=== PATIENT | male | born 1960 | race Caucasian/White ===

== ENCOUNTER 2016-12-17 16:07 | Inpatient (IN) | payer BC ==
[~2016-12-17] VITALS: Ht 180.3 cm; Wt 77.9 kg
[2016-12-17] MEDS ORDERED: SODIUM CHLORIDE 0.9% 1000ML 1,000 ML IV STA ×2 (16:45)
[2016-12-17] MEDS ORDERED: ONDANSETRON 8 MG/54 ML D5W IV STA (16:45)
[2016-12-17] MEDS ORDERED: MoRPHine SULFATE 4 MG/ML 1 ML CARP\\VIAL IV PRN ×2 (16:45→18:45)
[2016-12-17 17:17] LABS: BASO % 0.6 %; BASO ABS # 0.06 K/uL (0-0.2); COMPLETE YES; EOS % 0.5 %; HEMATOCRIT 46.6 % (42-52); IG% 0.3 %; LYMPH % 11.7 %; LYMPH ABS # 1.15 K/uL (1.2-3.4); MEAN CORPUSCULAR HEMOGLOBIN 27.4 pg (25-34); MEAN CORPUSCULAR HGB CONC 32.6 g/dl (32-36); MONO % 8.1 %; NEUT % 78.8 %; PLATELET COUNT 341 K/uL (130-400); RED BLOOD COUNT 5.55 M/uL (4.7-6.1); WHITE BLOOD COUNT 9.79 K/uL (4.8-10.8)
[2016-12-17 17:36] LABS: BUN/CREATININE RATIO 12.8 (10-20); CALCIUM 8.9 mg/dl (8.5-10.1); CREATININE 1.3 mg/dl (0.60-1.40); POTASSIUM 3.9 mmol/L (3.5-5.1)
--- NOTE | 2016-12-17 17:41 | DIAGNOSTIC IMAGING REPORT ---
ABDOMEN AND PELVIS CT WITHOUT CONTRAST CT DOSE: 344.95 mGy.cm HISTORY: acute abdominal pain, upper, N/V TECHNIQUE: Multiaxial CT images of the abdomen and pelvis were performed without contrast. COMPARISON STUDY: None. FINDINGS: There is an umbilical hernia containing a short segment of distended small bowel. Distal to the hernia the small bowel is decompressed. Proximally, the small bowel is distended and fluid-filled measuring up to 3.4 cm. Therefore, this is consistent with a small bowel obstruction. Moderate hiatus hernia. Patchy densities and tree-in-bud nodular opacities within the bilateral lower lobes. This is consistent with an infectious bronchiolitis/pneumonia. No pneumoperitoneum. No pneumatosis. The unenhanced liver, gallbladder, spleen, adrenal glands, and pancreas are unremarkable. No renal stones or hydronephrosis. No retroperitoneal lymphadenopathy. The bladder is mildly distended. There is a small left posterior bladder diverticulum. The prostate gland is enlarged. Trace pelvic free fluid. Colonic diverticulosis. Normal appendix. IMPRESSION: 1. Small bowel obstruction with the transition point located at the umbilical hernia. 2. Bilateral lower lobe infectious bronchiolitis/pneumonia. This could be due to aspiration. 3. Moderate hiatus hernia. 4. Colonic diverticulosis. 5. Trace pelvic free fluid. Electronically signed by: David Telles M.D. 12/17/2016 5:40 PM Dictated Date/Time: 12/17/2016 5:35 PM
[2016-12-17] MEDS ORDERED: PIPERACILLIN/TAZOBACTAM 4.5 GM/100ML D5W IV STA (17:47)
[2016-12-17] MEDS ORDERED: LEVAQUIN 750MG / 150ML D5W IV STA (17:47)
[2016-12-17] MEDS ORDERED: PANT40TA PO (17:53)
[2016-12-17] MEDS ORDERED: ADVIN10050 (17:53)
[2016-12-17] MEDS ORDERED: EFF/375 PO (17:53)
[2016-12-17] MEDS ORDERED: BUSP15TA70 PO (17:53)
[2016-12-17] MEDS ORDERED: TAMS0.4C38 PO (17:53)
[2016-12-17] MEDS ORDERED: CALC1CHW46 (17:53)
[2016-12-17] MEDS ORDERED: ARIP2TAB3 PO (17:53)
[2016-12-17] MEDS ORDERED: BUPIVACAINE/EPINEPHRINE 0.5% MPF 1:200,000 30 ML VIAL ONE (18:04)
[2016-12-17] MEDS ORDERED: MEPERIDINE HCL 25 MG/ML CARP IV PRN (18:15)
[2016-12-17] MEDS ORDERED: MoRPHine SULFATE 10 MG/ML CARP/VIAL IV PRN (18:15)
[2016-12-17] MEDS ORDERED: EpHEDrine SULFATE INJ 50 MG/ML AMP IV PRN (18:15)
[2016-12-17] MEDS ORDERED: ATROPINE SULFATE 0.1 MG/ML 5ML SYR IV PRN (18:15)
[2016-12-17] MEDS ORDERED: PHENYLEPHRINE 100MCG/ML 5ML SYR IV PRN (18:15)
[2016-12-17] MEDS ORDERED: FLUMAZENIL 0.1 MG/1 ML 10 ML VIAL IV PRN (18:15)
[2016-12-17] MEDS ORDERED: LABETALOL HCL IV 5 MG/ML 20ML IV PRN (18:15)
[2016-12-17] MEDS ORDERED: ONDANSETRON INJ 2 MG/ML 2 ML VIAL IV PRN ×2 (18:15→18:30)
[2016-12-17] MEDS ORDERED: NALOXONE HCL 0.4 MG/1 ML VIAL/CARP IV PRN (18:15)
--- NOTE | 2016-12-17 18:16 | History and Physical ---
History & Physical Date December 17, 2016. History of Present Illness The patient is a 56 year old male with an incarcerated umbilical hernia causing a SBO and possible aspiration pneumonia. He presents with abdominal pain since yesterday and subsequently started vomiting. He notes that there is a hard area around his umbilicus. His nausea & vomiting has been persistent since yesterday. The patient has not had any surgeries of the abdomen. His last bowel movement was two days ago which was normal. The patient has a history of asthma, acid reflux, and prostate disease. He denies LOC, headache, fevers, chills, diaphoresis, visual changes, neck pain, chest pain, breathing difficulties, back pain, melena, hematochezia, urinary symptoms, numbness, weakness, lymphadenopathy, rash, or other complaints. A CT scan shows SB in his umbilical hernia causing a SBO. Past Medical/Surgical History Medical Problems: (1) Asthma (2) GERD (gastroesophageal reflux disease) Surgical Problems: S/P hernia repair L arm fracture Additional History Hepatic Disease: No Endocrine Disorder: No Kidney Disease: No Hypertension: No Heart Disease: No Bleeding Tendencies: No Infectious Diseases: No Other: GERD asthma anxiety depression Allergies Uncoded Allergies: NASAL SPRAY (Allergy, Unknown, NOSE BLEEDS, 12/17/16) CAT DANDER, DUST, POLLEN (Allergy, Unknown, ., 12/17/16) Home Medications Scheduled Aripiprazole (Abilify), 1 TAB PO DAILY Buspirone Hcl (Buspar), 1 TAB PO BID Pantoprazole (Protonix), 40 MG PO DAILY Tamsulosin Hcl (Flomax), 1 CAP PO DAILY Venlafaxine Hcl (Effexor), 1 TAB PO BID Miscellaneous Medications Calcium Carbonate-Mag Hydrox (Antacid) Fluticasone Prop/Salmeterol (Advair Diskus 100-50 Mcg/Dose) Physical Examination Skin: warm/dry, no rash Eyes: normal inspection, EOMI, sclerae normal ENT: normal ENT inspection, pharynx normal Head: normocephalic, atraumatic Neck: supple, no adenopathy, trachea midline Respiratory/Chest: lungs clear, normal breath sounds, no respiratory distress Cardiovascular: regular rate, rhythm, no edema, no murmur Abdomen / GI: normal bowel sounds, + pertinent finding (incarcerated umbilical hernia; tender and some erythema) Back: normal inspection Extremities: normal inspection Genitourinary - Male: normal male genitalia Neurologic/Psych: no motor/sensory deficits, alert, oriented x 3 Addiitonal Comments: ABDOMEN AND PELVIS CT WITHOUT CONTRAST CT DOSE: 344.95 mGy.cm HISTORY: acute abdominal pain, upper, N/V TECHNIQUE: Multiaxial CT images of the abdomen and pelvis were performed without contrast. COMPARISON STUDY: None. FINDINGS: There is an umbilical hernia containing a short segment of distended small bowel. Distal to the hernia the small bowel is decompressed. Proximally, the small bowel is distended and fluid-filled measuring up to 3.4 cm. Therefore, this is consistent with a small bowel obstruction. Moderate hiatus hernia. Patchy densities and tree-in-bud nodular opacities within the bilateral lower lobes. This is consistent with an infectious bronchiolitis/pneumonia. No pneumoperitoneum. No pneumatosis. The unenhanced liver, gallbladder, spleen, adrenal glands, and pancreas are unremarkable. No renal stones or hydronephrosis. No retroperitoneal lymphadenopathy. The bladder is mildly distended. There is a small left posterior bladder diverticulum. The prostate gland is enlarged. Trace pelvic free fluid. Colonic diverticulosis. Normal appendix. IMPRESSION: 1. Small bowel obstruction with the transition point located at the umbilical hernia. 2. Bilateral lower lobe infectious bronchiolitis/pneumonia. This could be due to aspiration. 3. Moderate hiatus hernia. 4. Colonic diverticulosis. 5. Trace pelvic free fluid. Diagnosis incarcerated umbilical hernia/SBO ASA Classification: ASA Class II Plan of Treatment -to OR for exploration and repair of hernia; possible SB resection -IVF -IV abx -questionable aspiration; may need medical consult post-op -ngt post-op
[2016-12-17] MEDS ORDERED: FENTANYL CITRATE INJ 50 MCG/1 ML 2 ML VIAL ONE ×2 (18:29→19:16)
[2016-12-17] MEDS ORDERED: BISACODYL 10 MG SUPP PR PRN (18:30)
[2016-12-17] MEDS ORDERED: MoRPHine SULFATE 2 MG/ML CARP IV PRN (18:30)
[2016-12-17] MEDS ORDERED: ACETAMINOPHEN 650 MG SUPP PR PRN (18:30)
[2016-12-17] MEDS ORDERED: OXYCODONE/ACETAMINOPHEN 5-325 TAB PO PRN (18:30)
[2016-12-17] MEDS ORDERED: PROMETHAZINE HCL INJ 12.5 MG in SODIUM CHLORIDE 0.9% 50ML 50 ML IV PRN (18:30)
[2016-12-17] MEDS ORDERED: LIDOCAINE HCL 2% 2 ML VIAL (20MG/ML) ONE (18:32)
[2016-12-17] MEDS ORDERED: ROCURONIUM BROMID 50MG/5ML SYR ONE (18:32)
[2016-12-17] MEDS ORDERED: SUCCINYLCHOLINE 100MG/5ML SYR IV ONE (18:32)
[2016-12-17] MEDS ORDERED: PROPOFOL IV EMULSION 10 MG/ML 20 ML VIAL IV ONE (18:32)
[2016-12-17 18:40] LABS: URINE APPEARANCE CLOUDY (CLEAR); URINE BILIRUBIN NEG (NEG); URINE COLOR DK YELLOW; URINE EPITHELIAL CELL AUTO >30 /lpf (0-5); URINE NITRITE NEG (NEG); URINE PH 8.5 (4.5-7.5); URINE SPECIFIC GRAVITY 1.023 (1.000-1.030); UROBILINOGEN NEG (NEG); ZZUR CULT IF INDIC CLEAN CATCH NO
[2016-12-17 18:41] LABS: MANUAL MICROSCOPIC REQUIRED? NO; REVIEW REQ? YES
[2016-12-17 18:43] LABS: SULFASALICYLIC ACID POS (NEG)
[2016-12-17] MEDS ORDERED: DEXAMETHASONE SOD INJ 4 MG/ML VIAL ONE (19:16)
[2016-12-17] MEDS ORDERED: GLYCOPYRROLATE INJ 0.2 MG/ML VIAL ONE ×2 (19:16→19:39)
[2016-12-17] MEDS ORDERED: NEOSTIGMINE METHYLSULFATE 5 MG/5 ML SYR ONE (19:16)
[2016-12-17] MEDS ORDERED: ONDANSETRON INJ 2 MG/ML 2 ML VIAL ONE (19:16)
--- NOTE | 2016-12-17 20:04 | [facility] Post Operative Brief Note ---
Immediate Operative Summary Operative Date December 17, 2016. Pre-Operative Diagnosis Incarcerated Umbilical Hernia; Small Bowel Obstruction Post-Operative Diagnosis Same as preop Procedure(s) Performed Incarcerated Umbilical Hernia Repair; Small Bowel Resection Surgeon Dr. Taylor Verification Engineer Surgeon(s) None Estimated Blood Loss 35 ml Findings SB loop gangrenous in sac Specimens A. Portion of Small Bowel Drains none Anesthesia GETA w/marcaine Complication(s) None Disposition Surgical ICU
[2016-12-17] MEDS ORDERED: HYDROmorphone INJ 2 MG/ML SYR/VIAL ONE (20:24)
[2016-12-17] MEDS: HYDROmorphone INJ 1 MG/ML SYR IV PRN ×2 (20:25→20:30)
--- NOTE | 2016-12-17 20:55 | Anesthesiology Progress Note ---
Anesthesia Post Op Note Date & Time December 17, 2016 at 20:45 Vital Signs Pain Intensity: 3 Vital Signs Past 12 Hours Date Time Temp Pulse Resp B/P Pulse Ox O2 Delivery O2 Flow Rate FiO2 12/17/16 20:35 87 16 134/83 97 Nasal Cannula 3 12/17/16 20:25 83 16 137/81 100 Mask 10 12/17/16 20:15 85 16 123/76 98 Mask 10 12/17/16 20:05 37 85 16 137/79 96 Mask 10 12/17/16 18:23 138/87 12/17/16 18:18 89 18 95 12/17/16 16:21 36.8 105 22 140/72 96 Room Air Notes Mental Status: alert / awake / arousable, participated in evaluation Pt Amnestic to Procedure: Yes Nausea / Vomiting: adequately controlled Pain: adequately controlled Airway Patency, RR, SpO2: stable & adequate BP & HR: stable & adequate Hydration State: stable & adequate Anesthetic Complications: no major complications apparent The patient did well. He is awake, comfortable, and all of his vitals are stable. He was noted to have possible aspiration on Chest CT prior to the procedure. He was intubated by rapid sequence without any problem. An NG tube was placed once he was asleep. The patient had 400 ml of gastric fluid put out through the NG with most of it just prior to extubation. He was extubated without incident and has been stable in the PACU. I spoke to the patient preoperatively and postoperatively about the risk of aspiration pneumonia. I also let Dr. Taylor know about the large amount of gastric fluid suctioned out during the procedure.
[2016-12-17 21:04] VITALS: BP 137/82; PULSE 94; TEMP 36.8; O2SAT 96
[2016-12-17 21:12] VITALS: BP 137/82; PULSE 94; TEMP 36.8; Ht 180.3 cm; Wt 77.9 kg
[2016-12-17 21:36] VITALS: BP 127/78; PULSE 100; TEMP 37.1; O2SAT 96
[2016-12-17 22:00] VITALS: BP 134/83; PULSE 95; TEMP 36.9; O2SAT 95
[2016-12-17] MEDS ORDERED: PIPERACILL/TAZOBAC CONSULT ACTIVE PRN (22:00)
[2016-12-17] MEDS: LACTATED RINGER'S 1000ML 1,000 ML IV SCH (22:09)
--- NOTE | 2016-12-17 22:56 | EMERGENCY ROOM VISIT NOTE ---
History Report prepared by Crys: Emmanuel Perez Under the Supervision of: Dr. Usman Patterson M.D. First contact with patient: 16:40 Chief Complaint: ABDOMINAL PAIN Stated Complaint: VOMITING AND STOMACH PAIN FOR MORE THAN 24 HOURS Nursing Triage Summary: pt c/o nausea and vomiting since yesterday. pt also c/o constipation. last BM was sunday History of Present Illness The patient is a 56 year old male who presents to the Emergency Room with complaints of improved abdominal pain since yesterday. The patient had upper abdominal pain with bloating in the morning yesterday. He then started vomiting. The patient's pain has improved, and is currently rated 1/10 in severity. The pain becomes 5/10 when he pushes on the abdomen. He notes that there is a hard area around his umbilicus. The patient has had persistent nausea & vomiting since yesterday. He has never felt like this before. The patient has not had any surgeries of the abdomen. His last bowel movement was two days ago which was normal. The patient has a history of asthma, acid reflux , and prostate disease. He follows up with the [facility]. The patient experiences indigestion when he takes NSAIDS. The patient denies recent travel. Patient denies LOC, headache, fevers, chills, diaphoresis, visual changes, neck pain, chest pain, breathing difficulties, back pain, melena, hematochezia, urinary symptoms, numbness, weakness, lymphadenopathy, rash, or other complaints. Source of History: patient Onset: yesterday Position: abdomen Symptom Intensity: 1/10 Timing: other (improved) Modifying Factors (Worsening): other (pushing on abdomen) Associated Symptoms: + nausea, + vomiting Review of Systems See HPI for pertinent positives and negatives. A total of ten systems were reviewed and were otherwise negative. Past Medical & Surgical Medical Problems: (1) Asthma (2) GERD (gastroesophageal reflux disease) (3) Incarcerated hernia Surgical Problems: (1) S/P hernia repair Family History Cancer Heart disease Hypertension Social History Smoking Status: Never Smoker Alcohol Use: occasionally Housing Status: lives alone Occupation Status: unemployed Current/Historical Medications Scheduled Aripiprazole (Abilify), 1 TAB PO DAILY Buspirone Hcl (Buspar), 1 TAB PO BID Pantoprazole (Protonix), 40 MG PO DAILY Tamsulosin Hcl (Flomax), 1 CAP PO DAILY Venlafaxine Hcl (Effexor), 1 TAB PO BID Miscellaneous Medications Calcium Carbonate-Mag Hydrox (Antacid) Fluticasone Prop/Salmeterol (Advair Diskus 100-50 Mcg/Dose) Allergies Coded Allergies: Cat Dander (Verified Allergy, Unknown, SNEEZING, 12/17/16) Dust (Verified Allergy, Unknown, SNEEZING, 12/17/16) POLLEN (Verified Allergy, Unknown, SNEEZING, 12/17/16) Physical Exam Vital Signs Date Time Temp Pulse Resp B/P Pulse Ox O2 Delivery O2 Flow Rate FiO2 12/17/16 18:18 89 18 95 12/17/16 16:21 36.8 105 22 140/72 96 Room Air Physical Exam GENERAL: Awake, alert, uncomfortable-appearing, in no distress HENT: Normocephalic, atraumatic. Oropharynx unremarkable. EYES: Normal conjunctiva. Sclera non-icteric. NECK: Supple. No nuchal rigidity. FROM. No JVD. RESPIRATORY: Clear to auscultation. CARDIAC: Regular rate, normal rhythm. Extremities warm and well perfused. Pulses equal. ABDOMEN: Erythema and moderate tenderness around the umbilicus with a non- reducible hernia present. There is also generalized abdominal tenderness. No rebound or guarding. RECTAL: Deferred. MUSCULOSKELETAL: Chest examination reveals no tenderness. The back is symmetrical on inspection without obvious abnormality. There is no CVA tenderness to palpation. No joint edema. LOWER EXTREMITIES: Calves are equal size bilaterally and non-tender. No edema. No discoloration. NEURO: Normal sensorium. No sensory or motor deficits noted. SKIN: No rash or jaundice noted. Medical Decision & Procedures ER Provider Diagnostic Interpretation: Radiology results as stated below per my review and radiologist interpretation: ABDOMEN AND PELVIS CT WITHOUT CONTRAST CT DOSE: 344.95 mGy.cm HISTORY: acute abdominal pain, upper, N/V TECHNIQUE: Multiaxial CT images of the abdomen and pelvis were performed without contrast. COMPARISON STUDY: None. FINDINGS: There is an umbilical hernia containing a short segment of distended small bowel. Distal to the hernia the small bowel is decompressed. Proximally, the small bowel is distended and fluid-filled measuring up to 3.4 cm. Therefore, this is consistent with a small bowel obstruction. Moderate hiatus hernia. Patchy densities and tree-in-bud nodular opacities within the bilateral lower lobes. This is consistent with an infectious bronchiolitis/pneumonia. No pneumoperitoneum. No pneumatosis. The unenhanced liver, gallbladder, spleen, adrenal glands, and pancreas are unremarkable. No renal stones or hydronephrosis. No retroperitoneal lymphadenopathy. The bladder is mildly distended. There is a small left posterior bladder diverticulum. The prostate gland is enlarged. Trace pelvic free fluid. Colonic diverticulosis. Normal appendix. IMPRESSION: 1. Small bowel obstruction with the transition point located at the umbilical hernia. 2. Bilateral lower lobe infectious bronchiolitis/pneumonia. This could be due to aspiration. 3. Moderate hiatus hernia. 4. Colonic diverticulosis. 5. Trace pelvic free fluid. Electronically signed by: David Telles M.D. 12/17/2016 5:40 PM Dictated Date/Time: 12/17/2016 5:35 PM Laboratory Results 12/17/16 17:07 Red Blood Count 5.55, Mean Corpuscular Volume 84.0, Mean Corpuscular Hemoglobin 27.4, Mean Corpuscular Hemoglobin Concent 32.6, Mean Platelet Volume 9.0, Neutrophils (%) (Auto) 78.8, Lymphocytes (%) (Auto) 11.7, Monocytes (%) (Auto) 8.1, Eosinophils (%) (Auto) 0.5, Basophils (%) (Auto) 0.6, Neutrophils # (Auto) 7.71, Lymphocytes # (Auto) 1.15, Monocytes # (Auto) 0.79, Eosinophils # (Auto) 0.05, Basophils # (Auto) 0.06 12/17/16 17:07 Test 12/17/16 17:07 12/17/16 18:15 White Blood Count 9.79 K/uL (4.8-10.8) Red Blood Count 5.55 M/uL (4.7-6.1) Hemoglobin 15.2 g/dL (14.0-18.0) Hematocrit 46.6 % (42-52) Mean Corpuscular Volume 84.0 fL (80-100) Mean Corpuscular Hemoglobin 27.4 pg (25-34) Mean Corpuscular Hemoglobin Concent 32.6 g/dl (32-36) Platelet Count 341 K/uL (130-400) Mean Platelet Volume 9.0 fL (7.4-10.4) Neutrophils (%) (Auto) 78.8 % Lymphocytes (%) (Auto) 11.7 % Monocytes (%) (Auto) 8.1 % Eosinophils (%) (Auto) 0.5 % Basophils (%) (Auto) 0.6 % Neutrophils # (Auto) 7.71 K/uL (1.4-6.5) Lymphocytes # (Auto) 1.15 K/uL (1.2-3.4) Monocytes # (Auto) 0.79 K/uL (0.11-0.59) Eosinophils # (Auto) 0.05 K/uL (0-0.5) Basophils # (Auto) 0.06 K/uL (0-0.2) RDW Standard Deviation 52.9 fL (36.4-46.3) RDW Coefficient of Variation 17.2 % (11.5-14.5) Immature Granulocyte % (Auto) 0.3 % Immature Granulocyte # (Auto) 0.03 K/uL (0.00-0.02) Anion Gap 10.0 mmol/L (3-11) Est Creatinine Clear Calc Drug Dose 66.7 ml/min Estimated GFR () 70.2 Estimated GFR (Non- 60.6 BUN/Creatinine Ratio 12.8 (10-20) Calcium Level 8.9 mg/dl (8.5-10.1) Total Bilirubin 0.5 mg/dl (0.2-1) Direct Bilirubin 0.1 mg/dl (0-0.2) Aspartate Amino Transf (AST/SGOT) 14 U/L (15-37) Alanine Aminotransferase (ALT/SGPT) 27 U/L (12-78) Alkaline Phosphatase 90 U/L (45-117) Total Protein 7.9 gm/dl (6.4-8.2) Albumin 3.4 gm/dl (3.4-5.0) Lipase 90 U/L (73-393) Urine Color DK YELLOW Urine Appearance CLOUDY (CLEAR) Urine pH 8.5 (4.5-7.5) Urine Specific [place] 1.023 (1.000-1.030) Urine Protein 1+ (NEG) Urine Glucose (UA) NEG (NEG) Urine Ketones 2+ (NEG) Urine Occult Blood NEG (NEG) Urine Nitrite NEG (NEG) Urine Bilirubin NEG (NEG) Urine Urobilinogen NEG (NEG) Urine Leukocyte Esterase NEG (NEG) Urine WBC (Auto) 1-5 /hpf (0-5) Urine RBC (Auto) 0-4 /hpf (0-4) Urine Hyaline Casts (Auto) 10-30 /lpf (0-5) Urine Epithelial Cells (Auto) >30 /lpf (0-5) Urine Bacteria (Auto) NEG (NEG) Urine Renal Epithelial Cells 0-5 /lpf (0-5) Laboratory results reviewed by me Medications Administered Medications (Trade) Dose Ordered Sig/Zack Route Start Time Stop Time Status Last Admin Dose Admin Sodium Chloride 1,000 ml @ 125 mls/hr Q8H STAT IV 12/17/16 16:45 12/17/16 21:52 DC 12/17/16 18:13 125 MLS/HR Sodium Chloride (Nss 1000ml) 1,000 ml @ 999 mls/hr Q1H1M STAT IV 12/17/16 16:45 12/17/16 17:45 DC 12/17/16 16:45 999 MLS/HR Ondansetron HCl (Zofran 8mg Iv) 8 mg NOW STAT IV 12/17/16 16:45 12/17/16 16:48 DC 12/17/16 17:00 8 MG Morphine Sulfate (MoRPHine SULFATE INJ) 4 mg Q15M PRN IV 12/17/16 16:45 12/17/16 21:52 DC 12/17/16 17:00 4 MG Piperacillin Sod/ Tazobactam Sod (Zosyn Iv) 4.5 gm NOW STAT IV 12/17/16 17:47 12/17/16 17:49 DC 12/17/16 18:13 4.5 GM Bupivacaine HCl/ Epinephrine Bitart (Sensorcaine/ Epinephrine 0.5% Mpf 1:200,000) 30 ml STK-MED ONCE .ROUTE 12/17/16 18:04 12/17/16 18:05 DC 12/17/16 19:56 20 ML Hydromorphone HCl 0.5 mg 0.5 mg Q5M PRN IV 12/17/16 18:15 12/17/16 23:00 12/17/16 20:30 0.5 MG Lactated Ringer's (Lr 1000ml) 1,000 ml @ 150 mls/hr Q6H40M IV 12/17/16 18:16 01/16/17 18:15 12/17/16 22:09 150 MLS/HR ED Course 1645: The patient was evaluated in room A3. A complete history and physical exam was performed. 1645: Morphine Sulfate 4 mg IV, Zofran 8 mg IV, NSS 1000 ml @ 999 mls/hr, NSS 1000 ml @ 125 mls/hr. 1726: Discussed the case with Dr. Taylor, General Surgeon. The patient will be evaluated. 1738: Updated the patient. He notes that he has had a cough lately. CT was positive for pneumonia. 1747: Zosyn 4.5 gm IV, Levofloxacin 750 mg IV. Medical Decision Triage Nursing notes reviewed. The patient's presentation and history were concerning for abdominal pain. Etiologies such as appendicitis, diverticulitis, obstruction, inflammatory bowel disease, renal colic, PUD, biliary pathology, pancreatitis, mesenteric ischemia, aortic pathology, infections, genitourinary, UTI, perforated viscus, as well as others were entertained. The patient was evaluated. On physical examination he had findings concerning for an incarcerated hernia. I suspect that this may be causing obstruction. The patient had blood work obtained. He had an unremarkable CBC and chemistry panel. The patient was hydrated. He was given Zofran and morphine for pain control. He was feeling better with this. CT scan revealed findings of a small bowel obstruction and hernia. The patient also had some findings concerning for pneumonia. He did have vomiting. The patient also notes a cough over the last few days but thought it might be allergies. He was treated with Levaquin and Zosyn. Cultures were obtained first. Consultation was made with Dr. Taylor of general surgery. He evaluated the patient in the Emergency Room and took him to the operating suite for further management. The chart was completed utilizing [employer] Speech voice recognition software. Grammatical errors, random word insertions, pronoun errors, and incomplete sentences are an occasional consequence of this system due to software limitations, ambient noise, and hardware issues. Any formal questions or concerns about the content, text, or information contained within the body of this dictation should be directly addressed to the physician for clarification. Consults Time Called: 1724 Consulting Physician: Dr. Taylor, General Surgeon. Returned Call: 1726 The patient will be evaluated. Impression Primary Impression: Small bowel obstruction Additional Impression: PNA (pneumonia) Scribe Attestation The scribe's documentation has been prepared under my direction and personally reviewed by me in its entirety. I confirm that the note above accurately reflects all work, treatment, procedures, and medical decision making performed by me. Departure Information Dispostion Being Evaluated By Surgeon Referrals Jett Kent M.D. (PCP) Patient Instructions My [facility] Problem Qualifiers
[2016-12-17 22:59] VITALS: BP 120/76; PULSE 97; TEMP 36.8; O2SAT 96
[2016-12-17] MEDS: VENLAFAXINE HCL 37.5 MG TAB PO SCH (23:09)
[2016-12-17] MEDS: BusPIRone 15 MG TAB PO SCH (23:09)
--- NOTE | 2016-12-17 23:33 | OPERATIVE REPORT ---
DATE OF OPERATION: 12/17/2016 PREOPERATIVE DIAGNOSIS: Incarcerated umbilical hernia. POSTOPERATIVE DIAGNOSES: 1. Incarcerated umbilical hernia. 2. Gangrenous small bowel loop within the hernia sac. PROCEDURE PERFORMED: 1. Open umbilical hernia repair. 2. Small bowel resection and anastomosis x1. SURGEON: Lalit Taylor MD RODEO RIDER: None. ANESTHESIA: General endotracheal 0.5% Marcaine with epinephrine local. ESTIMATED BLOOD LOSS: 35 mL. DRAINS: None. COMPLICATIONS: None. SPECIMENS: Small bowel sent for pathologic evaluation. INDICATION FOR PROCEDURE: This is a 56-year-old male, who came in with over a day of abdominal pain, nausea and vomiting. He underwent workup in the ER with CT scan which shows a knuckle of small bowel within umbilical hernia. He denied knowledge of this hernia previously. CT was also suspicious for possible aspiration pneumonia. He consented for an open exploration and possible small bowel resection. We placed an NG tube and had medicine consult for what appears to be likely postop aspiration pneumonia. DESCRIPTION OF PROCEDURE: The patient was taken to the OR and underwent excellent general endotracheal anesthesia. An NG tube was placed and drained his stomach of 400 mL of bilious content. His abdomen was prepped and draped in normal sterile fashion. Transverse infraumbilical incision was made and dissection was taken down to identify his fascia. There was an obvious hernia sac; this was dissected sharply with Gaby scissors until the entire sac was freed. Using handle of a DeBakey forceps the hernia was opened widely using a knife. Once this was done, the sac was entered into and the small bowel was identified. The sac was resected. There appeared to be a gangrenous portion of small bowel. This was freed up and allowed to pink up and warm up in the abdomen. It was grabbed back after about 10 minutes and the small bowel was checked. There was still a focal necrotic area. There were other punctate areas which were also questionable. Therefore, it was elected to do a limited small bowel resection. Using a EVELIN stapler, the proximal and distal ends of the bowel which was not viable was resected. The mesentery was taken down between clamps and silk ties. Once this was done, the two ends of the small bowel were approximated and a EVELIN stapler was used to transect and create a stapled [id number] anastomosis. A suture was placed right at the crotch of the suture line to take pressure. The defect was closed with fire of the EVELIN stapler and that was reinforced with interrupted silk sutures. The defect in the mesentery was also closed with interrupted silk sutures. The bowel itself was good and without any issues. This was placed back into the abdomen. The abdomen was irrigated out with warm saline. Likewise, an NG tube was placed perioperatively to help decompress the stomach and prevent any further aspiration pneumonia. Attention was then turned to closing the hernias. The hernia had to be widened to about 5-6 cm and therefore I selected to close this with a running PDS suture. This was closed in a simple running manner with small 1 cm bites. The entire hernia was closed with a single suture. Once this was done, 0.5% Marcaine with epinephrine local was used to create a local field block. A 3-0 Vicryl was used to close the deep tissues and the subcutaneous. [place] were used to close the skin. Sterile dressing was applied. The patient tolerated the procedure well without any complications, sent to postop recovery area for a period of observation. We will have a hospitalist consult to help take care of the aspiration pneumonia. He will be sent to the floor for the rest of his care. I attest to the content of the Intraoperative Record and any orders documented therein. Any exceptio ns are noted below.
[2016-12-18] VITALS (12 sets, daily range): BP systolic 117–132; BP diastolic 76–83; PULSE 83–98; TEMP 36.5–37; O2SAT 88–96
[2016-12-18] MEDS: PIPERACILL/TAZOBAC IV 3.375 GM in DEXTROSE 5% 100ML 100 ML IV SCH ×3 (00:08→20:06)
[2016-12-18] MEDS: LACTATED RINGER'S 1000ML 1,000 ML IV SCH ×4 (00:20→18:53)
--- NOTE | 2016-12-18 03:35 | History and Physical ---
History & Physical Date & Time of Service: December 18, 2016 at 03:24 Chief Complaint: Incarcerated Hernia Primary Care Physician: Jett Kent M.D. History of Present Illness Source: patient This is a 56 yo m that is s/p SBO repair secondary to an umbilical hernia POD 0. The patient states that he was having abdominal pain since yesterday in the umbilical region and started to suffer from N&V. He also began to notice that there was an area around his umbilical region that was getting harder. The pain was around the umbilicus, 10/10 and sharp in nature. It was exacerbated by movement. He went to the ED for evaluation where he was found to have an incarcerated hernia and repair was done. He was also found to have bilat pneumonia concerning for aspiration on the CT as well. When asked about SOB he states that "now that you mention it over the past two weeks I get short of breath more quickly with activity". He has a chronic dry cough which has been unchanged. He also has a history of asthma and only uses his advair daily and has not had to use his rescue inhaler. Past Medical/Surgical History Medical Problems: (1) Asthma Status: Chronic (2) GERD (gastroesophageal reflux disease) Status: Chronic Surgical Problems: (1) S/P hernia repair Status: Resolved Family History Cancer Heart disease Hypertension Social History Smoking Status: Never Smoker Smokeless Tobacco Use: No Alcohol Use: none Drug Use: none Occupational Status: unemployed Allergies Coded Allergies: Cat Dander (Verified Allergy, Unknown, SNEEZING, 12/17/16) Dust (Verified Allergy, Unknown, SNEEZING, 12/17/16) POLLEN (Verified Allergy, Unknown, SNEEZING, 12/17/16) Home Medications Scheduled Aripiprazole (Abilify), 1 TAB PO DAILY Buspirone Hcl (Buspar), 1 TAB PO BID Pantoprazole (Protonix), 40 MG PO DAILY Tamsulosin Hcl (Flomax), 1 CAP PO DAILY Venlafaxine Hcl (Effexor), 1 TAB PO BID Miscellaneous Medications Calcium Carbonate-Mag Hydrox (Antacid) Fluticasone Prop/Salmeterol (Advair Diskus 100-50 Mcg/Dose) Review of Systems Constitutional: No fever Eyes: No worsening of vision ENT: No hearing loss Respiratory: + cough, + dyspnea on exertion, + shortness of breath, No dyspnea at rest, No sputum, No wheezing Cardiovascular: No chest pain Abdomen: + nausea, + pain, + vomiting, No GI bleeding, No constipation, No diarrhea Musculoskeletal: No joint pain, No muscle pain Genitourinary - Male: No dysuria, No hematuria Neurologic: No balance problems, No numbness/tingling, No weakness Psychiatric: No depression symptoms Endocrine: No fatigue Integumentary: No rash Physical Exam Vital Signs Date Time Temp Pulse Resp B/P Pulse Ox O2 Delivery O2 Flow Rate FiO2 12/18/16 00:12 37.0 96 16 127/83 95 Nasal Cannula 3.0 12/18/16 00:00 Nasal Cannula 2.0 12/17/16 22:59 36.8 97 16 120/76 96 Nasal Cannula 3.0 12/17/16 22:00 36.9 95 16 134/83 95 Nasal Cannula 3.0 12/17/16 21:36 37.1 100 16 127/78 96 Nasal Cannula 3.0 12/17/16 21:12 36.8 94 16 137/82 Nasal Cannula 3.0 96 12/17/16 21:05 Nasal Cannula 3.0 12/17/16 21:04 36.8 94 16 137/82 96 Nasal Cannula 3.0 12/17/16 20:45 37.1 87 16 132/80 98 Nasal Cannula 3 12/17/16 20:35 87 16 134/83 97 Nasal Cannula 3 12/17/16 20:25 83 16 137/81 100 Mask 10 12/17/16 20:15 85 16 123/76 98 Mask 10 12/17/16 20:05 37 85 16 137/79 96 Mask 10 12/17/16 18:23 138/87 12/17/16 18:18 89 18 95 12/17/16 16:21 36.8 105 22 140/72 96 Room Air General Appearance: no apparent distress Head: normocephalic, atraumatic Eyes: normal inspection ENT: normal ENT inspection Neck: supple Respiratory/Chest: lungs clear, no respiratory distress, no accessory muscle use Cardiovascular: regular rate, rhythm, no murmur Abdomen/GI: + pertinent finding (s/p hernia repair, abd exam deferred) Back: normal inspection Extremities/Musculoskelatal: no calf tenderness, no pedal edema Neurologic/Psych: alert, normal mood/affect, oriented x 3 Skin: normal color, warm/dry, no rash Lymphatic: no adenopathy Diagnostics Laboratory Results Results Past 24 Hours Test 12/17/16 17:07 12/17/16 18:15 Range/Units White Blood Count 9.79 4.8-10.8 K/uL Red Blood Count 5.55 4.7-6.1 M/uL Hemoglobin 15.2 14.0-18.0 g/dL Hematocrit 46.6 42-52 % Mean Corpuscular Volume 84.0 80-100 fL Mean Corpuscular Hemoglobin 27.4 25-34 pg Mean Corpuscular Hemoglobin Concent 32.6 32-36 g/dl Platelet Count 341 130-400 K/uL Mean Platelet Volume 9.0 7.4-10.4 fL Neutrophils (%) (Auto) 78.8 % Lymphocytes (%) (Auto) 11.7 % Monocytes (%) (Auto) 8.1 % Eosinophils (%) (Auto) 0.5 % Basophils (%) (Auto) 0.6 % Neutrophils # (Auto) 7.71 1.4-6.5 K/uL Lymphocytes # (Auto) 1.15 1.2-3.4 K/uL Monocytes # (Auto) 0.79 0.11-0.59 K/uL Eosinophils # (Auto) 0.05 0-0.5 K/uL Basophils # (Auto) 0.06 0-0.2 K/uL RDW Standard Deviation 52.9 36.4-46.3 fL RDW Coefficient of Variation 17.2 11.5-14.5 % Immature Granulocyte % (Auto) 0.3 % Immature Granulocyte # (Auto) 0.03 0.00-0.02 K/uL Sodium Level 141 136-145 mmol/L Potassium Level 3.9 3.5-5.1 mmol/L Chloride Level 103 98-107 mmol/L Carbon Dioxide Level 28 21-32 mmol/L Anion Gap 10.0 3-11 mmol/L Blood Urea Nitrogen 17 7-18 mg/dl Creatinine 1.30 0.60-1.40 mg/dl Est Creatinine Clear Calc Drug Dose 66.7 ml/min Estimated GFR () 70.2 Estimated GFR (Non- 60.6 BUN/Creatinine Ratio 12.8 10-20 Random Glucose 127 70-99 mg/dl Calcium Level 8.9 8.5-10.1 mg/dl Total Bilirubin 0.5 0.2-1 mg/dl Direct Bilirubin 0.1 0-0.2 mg/dl Aspartate Amino Transf (AST/SGOT) 14 15-37 U/L Alanine Aminotransferase (ALT/SGPT) 27 12-78 U/L Alkaline Phosphatase 90 45-117 U/L Total Protein 7.9 6.4-8.2 gm/dl Albumin 3.4 3.4-5.0 gm/dl Lipase 90 73-393 U/L Urine Color DK YELLOW Urine Appearance CLOUDY CLEAR Urine pH 8.5 4.5-7.5 Urine Specific [place] 1.023 1.000-1.030 Urine Protein 1+ NEG Urine Glucose (UA) NEG NEG Urine Ketones 2+ NEG Urine Occult Blood NEG NEG Urine Nitrite NEG NEG Urine Bilirubin NEG NEG Urine Urobilinogen NEG NEG Urine Leukocyte Esterase NEG NEG Urine WBC (Auto) 1-5 0-5 /hpf Urine RBC (Auto) 0-4 0-4 /hpf Urine Hyaline Casts (Auto) 10-30 0-5 /lpf Urine Epithelial Cells (Auto) >30 0-5 /lpf Urine Bacteria (Auto) NEG NEG Urine Renal Epithelial Cells 0-5 0-5 /lpf Microbiology Results 12/17/16 Blood Culture, Received Pending 12/17/16 Blood Culture, Received Pending Diagnostic Radiology ABDOMEN AND PELVIS CT WITHOUT CONTRAST CT DOSE: 344.95 mGy.cm HISTORY: acute abdominal pain, upper, N/V TECHNIQUE: Multiaxial CT images of the abdomen and pelvis were performed without contrast. COMPARISON STUDY: None. FINDINGS: There is an umbilical hernia containing a short segment of distended small bowel. Distal to the hernia the small bowel is decompressed. Proximally, the small bowel is distended and fluid-filled measuring up to 3.4 cm. Therefore, this is consistent with a small bowel obstruction. Moderate hiatus hernia. Patchy densities and tree-in-bud nodular opacities within the bilateral lower lobes. This is consistent with an infectious bronchiolitis/pneumonia. No pneumoperitoneum. No pneumatosis. The unenhanced liver, gallbladder, spleen, adrenal glands, and pancreas are unremarkable. No renal stones or hydronephrosis. No retroperitoneal lymphadenopathy. The bladder is mildly distended. There is a small left posterior bladder diverticulum. The prostate gland is enlarged. Trace pelvic free fluid. Colonic diverticulosis. Normal appendix. IMPRESSION: 1. Small bowel obstruction with the transition point located at the umbilical hernia. 2. Bilateral lower lobe infectious bronchiolitis/pneumonia. This could be due to aspiration. 3. Moderate hiatus hernia. 4. Colonic diverticulosis. 5. Trace pelvic free fluid. Impression Assessment and Plan This is a 56 yo m s/p incarcerated hernia repair POD 0 that is also suffering from bilateral pna Bilateral PNA with a history of asthma - will continue with the zosyn - if fever or worsening of clinical status considering additionally adding vanco - Duonebs qid - Trend CBC - cont advair S/P incarcerated hernia repair - Care and pain control per primary team Depression/ Anxiety - continue buspar, venlafaxine and abilify once able to tolerate PO BPH - continue flomax when able to tolerate PO Elevated BSG - check bl HBA1C Level of Care Med/Surg Advanced Directives Existing Living Will: No Existing Power of Assisted Sales Representative: No Resuscitation Status FULL RESUSCITATION VTE Prophylaxis VTE Risk Assessment Done? Y/N: Yes Risk Level: Low Given or contraindicated: Contraindicated Social Service Consult None Apply Note Total Time: Critical Care 30 - 74 minutes Assessment and Plan Attending Addendum: I have physically seen and examined this patient, have directed their medical care, have supervised the medical residents activities, and agree with the H&P as noted above, with the following changes: NONE
[2016-12-18 05:41] LABS: BASO % 0.1 %; BASO ABS # 0.01 K/uL (0-0.2); COMPLETE YES; HEMATOCRIT 38.5 % (42-52); IG% 0.3 %; LYMPH % 6.7 %; MEAN CELL VOLUME 84.8 fL (80-100); MEAN CORPUSCULAR HEMOGLOBIN 27.3 pg (25-34); MEAN CORPUSCULAR HGB CONC 32.2 g/dl (32-36); MEAN PLATELET VOLUME 8.8 fL (7.4-10.4); MONO % 9.8 %; NEUT % 83.1 %; PLATELET COUNT 290 K/uL (130-400); RED BLOOD COUNT 4.54 M/uL (4.7-6.1); WHITE BLOOD COUNT 10.41 K/uL (4.8-10.8)
[2016-12-18] MEDS ORDERED: PIPERACILL/TAZOBAC IV 3.375 GM in DEXTROSE 5% 100ML 100 ML IV SCH (06:00)
[2016-12-18 07:21] LABS: ESTIMATED AVERAGE GLUCOSE 120 mg/dl; HA1C FLAG Normal (Normal)
[2016-12-18] MEDS: ALBUT/IPRATROP 3MG/0.5MG NEB 3 ML VIAL INH SCH ×4 (07:22→19:38)
[2016-12-18] MEDS: FLUTICASONE/SALMETEROL 100/50 (ADVAIR) 14 PUFF/1 INHALER INH SCH ×2 (08:39→21:30)
[2016-12-18] MEDS: BusPIRone 15 MG TAB PO SCH ×2 (08:40→21:30)
[2016-12-18] MEDS: VENLAFAXINE HCL 37.5 MG TAB PO SCH ×2 (08:40→21:30)
[2016-12-18] MEDS: TAMSULOSIN HCL 0.4 MG CAP PO SCH (08:54)
[2016-12-18] MEDS ORDERED: LORAZEPAM INJ 1 MG in SYRINGE 0.5 ML IV STA (09:59)
[2016-12-18] MEDS ORDERED: LORAZEPAM INJ 1 MG in SYRINGE 0.5 ML IV PRN (10:00)
[2016-12-18] MEDS: PANTOprazole INJ 40 MG in SYRINGE 0 ML IV SCH (11:21)
--- NOTE | 2016-12-18 11:26 | Surgery Progress Note ---
Surgery Progress Note Date of Service December 18, 2016. Subjective Post OP Day: 1 + complaints (NGT causing anxiety , unable to swallow, shaking), + pain controlled, No bowel movement, No flatus, No nausea, No vomiting Objective Vital Signs: Date Time Temp Pulse Resp B/P Pulse Ox O2 Delivery O2 Flow Rate FiO2 12/18/16 07:23 83 14 92 Room Air 12/18/16 06:57 36.5 87 19 122/79 92 Room Air 12/18/16 04:28 92 Room Air 12/18/16 03:15 37.0 89 16 130/81 96 Nasal Cannula 3.0 12/18/16 00:12 37.0 96 16 127/83 95 Nasal Cannula 3.0 12/18/16 00:00 Nasal Cannula 2.0 12/17/16 22:59 36.8 97 16 120/76 96 Nasal Cannula 3.0 12/17/16 22:00 36.9 95 16 134/83 95 Nasal Cannula 3.0 12/17/16 21:36 37.1 100 16 127/78 96 Nasal Cannula 3.0 12/17/16 21:12 36.8 94 16 137/82 Nasal Cannula 3.0 96 12/17/16 21:05 Nasal Cannula 3.0 12/17/16 21:04 36.8 94 16 137/82 96 Nasal Cannula 3.0 12/17/16 20:45 37.1 87 16 132/80 98 Nasal Cannula 3 12/17/16 20:35 87 16 134/83 97 Nasal Cannula 3 12/17/16 20:25 83 16 137/81 100 Mask 10 12/17/16 20:15 85 16 123/76 98 Mask 10 12/17/16 20:05 37 85 16 137/79 96 Mask 10 12/17/16 18:23 138/87 12/17/16 18:18 89 18 95 12/17/16 16:21 36.8 105 22 140/72 96 Room Air General Appearance: WD/WN, + moderate distress Head: normocephalic, atraumatic Neck: trachea midline Respiratory/Chest: normal breath sounds, no respiratory distress, no accessory muscle use Cardiovascular: regular rate, rhythm, no murmur Abdomen: non distended, soft, + tenderness (at incision site, appropriate) Incision(s): clean (dressing clean and dry), dry Extremities: non-tender, normal inspection Laboratory Results: Results Past 24 Hours Test 12/17/16 17:07 12/17/16 18:15 12/18/16 05:30 Range/Units White Blood Count 9.79 10.41 4.8-10.8 K/uL Red Blood Count 5.55 4.54 4.7-6.1 M/uL Hemoglobin 15.2 12.4 14.0-18.0 g/dL Hematocrit 46.6 38.5 42-52 % Mean Corpuscular Volume 84.0 84.8 80-100 fL Mean Corpuscular Hemoglobin 27.4 27.3 25-34 pg Mean Corpuscular Hemoglobin Concent 32.6 32.2 32-36 g/dl Platelet Count 341 290 130-400 K/uL Mean Platelet Volume 9.0 8.8 7.4-10.4 fL Neutrophils (%) (Auto) 78.8 83.1 % Lymphocytes (%) (Auto) 11.7 6.7 % Monocytes (%) (Auto) 8.1 9.8 % Eosinophils (%) (Auto) 0.5 0.0 % Basophils (%) (Auto) 0.6 0.1 % Neutrophils # (Auto) 7.71 8.65 1.4-6.5 K/uL Lymphocytes # (Auto) 1.15 0.70 1.2-3.4 K/uL Monocytes # (Auto) 0.79 1.02 0.11-0.59 K/uL Eosinophils # (Auto) 0.05 0.00 0-0.5 K/uL Basophils # (Auto) 0.06 0.01 0-0.2 K/uL RDW Standard Deviation 52.9 53.9 36.4-46.3 fL RDW Coefficient of Variation 17.2 17.3 11.5-14.5 % Immature Granulocyte % (Auto) 0.3 0.3 % Immature Granulocyte # (Auto) 0.03 0.03 0.00-0.02 K/uL Sodium Level 141 136-145 mmol/L Potassium Level 3.9 3.5-5.1 mmol/L Chloride Level 103 98-107 mmol/L Carbon Dioxide Level 28 21-32 mmol/L Anion Gap 10.0 3-11 mmol/L Blood Urea Nitrogen 17 7-18 mg/dl Creatinine 1.30 0.60-1.40 mg/dl Est Creatinine Clear Calc Drug Dose 66.7 ml/min Estimated GFR () 70.2 Estimated GFR (Non- 60.6 BUN/Creatinine Ratio 12.8 10-20 Random Glucose 127 70-99 mg/dl Calcium Level 8.9 8.5-10.1 mg/dl Total Bilirubin 0.5 0.2-1 mg/dl Direct Bilirubin 0.1 0-0.2 mg/dl Aspartate Amino Transf (AST/SGOT) 14 15-37 U/L Alanine Aminotransferase (ALT/SGPT) 27 12-78 U/L Alkaline Phosphatase 90 45-117 U/L Total Protein 7.9 6.4-8.2 gm/dl Albumin 3.4 3.4-5.0 gm/dl Lipase 90 73-393 U/L Urine Color DK YELLOW Urine Appearance CLOUDY CLEAR Urine pH 8.5 4.5-7.5 Urine Specific [place] 1.023 1.000-1.030 Urine Protein 1+ NEG Urine Glucose (UA) NEG NEG Urine Ketones 2+ NEG Urine Occult Blood NEG NEG Urine Nitrite NEG NEG Urine Bilirubin NEG NEG Urine Urobilinogen NEG NEG Urine Leukocyte Esterase NEG NEG Urine WBC (Auto) 1-5 0-5 /hpf Urine RBC (Auto) 0-4 0-4 /hpf Urine Hyaline Casts (Auto) 10-30 0-5 /lpf Urine Epithelial Cells (Auto) >30 0-5 /lpf Urine Bacteria (Auto) NEG NEG Urine Renal Epithelial Cells 0-5 0-5 /lpf Estimated Average Glucose 120 mg/dl Hemoglobin A1c 5.8 4.5-5.6 % Microbiology Results 12/17/16 Blood Culture, Received Pending 12/17/16 Blood Culture, Received Pending Assessment & Plan POD # 1 s/p umbilical hernia repair with small bowel resection -NGT with bilious output- 350 last shift - abdominal pain controlled - Anxious, NGT causing discomfort - NO nausea or emesis - Vitals stable Plan: Continue NGT to LIS 1 mg Ativan now 1 mg Ativan IV q 8 hours prn anxiety Continue NPO May have minimal ice chips to help with swallowing Continue IV fluids and IV antibiotics Continue pain management prn encourage incentive spirometry hopeful to d/x NGT tomorrow Dr. Taylor has seen patient and agrees with above
--- NOTE | 2016-12-18 14:11 | Progress Note ---
Progress Note Date of Service December 18, 2016. Progress Note pt seen and examined. c/o irritation with NGT VSS Lungs: crackles R base > left CV: RRR no murmur abd: BS hypoactive. Mild diffuse ttp. dressing in tact ext: no edema bilat A/P: 56 y/o male s/p umbillical hernia repair, SB resection for incarcerated hernia -pain management, DVT prophylaxis, PT per primary team Pneumonia -agree with roslyn dale will follow
[2016-12-18] MEDS ORDERED: LIDOCAINE HCL 2% JELLY 30 ML TUBE EXT ONE ×2 (16:31→17:19)
[2016-12-18] MEDS ORDERED: NURSING VERBAL MED ORDER ONE ×2 (20:00→20:15)
[2016-12-18] MEDS ORDERED: HYDROmorphone INJ 1 MG/ML SYR ONE (20:04)
--- NOTE | 2016-12-18 20:25 | Surgery Progress Note ---
Surgery Progress Note Date of Service December 18, 2016. Subjective pt has difficulty to pass urine, pt had BPH history, U/S scan showed urine retention about 760 ml, pt requests to do iraheta catheter insertion, I did iraheta catheter insertion, pt tolerated the procedure well, pt feels better. Objective Vital Signs: Date Time Temp Pulse Resp B/P Pulse Ox O2 Delivery O2 Flow Rate FiO2 12/18/16 19:38 89 16 92 Room Air 12/18/16 15:14 98 16 92 Room Air 12/18/16 14:58 36.5 89 18 132/76 92 Room Air 12/18/16 11:51 36.6 96 18 119/78 91 Room Air 12/18/16 11:04 98 16 92 Room Air 12/18/16 08:00 Room Air 12/18/16 07:23 83 14 92 Room Air 12/18/16 06:57 36.5 87 19 122/79 92 Room Air 12/18/16 04:28 92 Room Air 12/18/16 03:15 37.0 89 16 130/81 96 Nasal Cannula 3.0 12/18/16 00:12 37.0 96 16 127/83 95 Nasal Cannula 3.0 12/18/16 00:00 Nasal Cannula 2.0 12/17/16 22:59 36.8 97 16 120/76 96 Nasal Cannula 3.0 12/17/16 22:00 36.9 95 16 134/83 95 Nasal Cannula 3.0 12/17/16 21:36 37.1 100 16 127/78 96 Nasal Cannula 3.0 12/17/16 21:12 36.8 94 16 137/82 Nasal Cannula 3.0 96 12/17/16 21:05 Nasal Cannula 3.0 12/17/16 21:04 36.8 94 16 137/82 96 Nasal Cannula 3.0 12/17/16 20:45 37.1 87 16 132/80 98 Nasal Cannula 3 12/17/16 20:35 87 16 134/83 97 Nasal Cannula 3 12/17/16 20:25 83 16 137/81 100 Mask 10 General Appearance: WD/WN, no apparent distress Neck: supple, no JVD Abdomen: normal bowel sounds, non tender, non distended, soft Incision(s): clean, dry, intact Laboratory Results: Results Past 24 Hours Test 12/18/16 05:30 Range/Units White Blood Count 10.41 4.8-10.8 K/uL Red Blood Count 4.54 4.7-6.1 M/uL Hemoglobin 12.4 14.0-18.0 g/dL Hematocrit 38.5 42-52 % Mean Corpuscular Volume 84.8 80-100 fL Mean Corpuscular Hemoglobin 27.3 25-34 pg Mean Corpuscular Hemoglobin Concent 32.2 32-36 g/dl Platelet Count 290 130-400 K/uL Mean Platelet Volume 8.8 7.4-10.4 fL Neutrophils (%) (Auto) 83.1 % Lymphocytes (%) (Auto) 6.7 % Monocytes (%) (Auto) 9.8 % Eosinophils (%) (Auto) 0.0 % Basophils (%) (Auto) 0.1 % Neutrophils # (Auto) 8.65 1.4-6.5 K/uL Lymphocytes # (Auto) 0.70 1.2-3.4 K/uL Monocytes # (Auto) 1.02 0.11-0.59 K/uL Eosinophils # (Auto) 0.00 0-0.5 K/uL Basophils # (Auto) 0.01 0-0.2 K/uL RDW Standard Deviation 53.9 36.4-46.3 fL RDW Coefficient of Variation 17.3 11.5-14.5 % Immature Granulocyte % (Auto) 0.3 % Immature Granulocyte # (Auto) 0.03 0.00-0.02 K/uL Estimated Average Glucose 120 mg/dl Hemoglobin A1c 5.8 4.5-5.6 % Assessment & Plan IMP: urine retention, iraheta catheter insertion, keep iraheta catheter overnight, IV fluid 120 ml/h
[2016-12-19] VITALS (8 sets, daily range): BP systolic 104–116; BP diastolic 66–72; PULSE 80–95; TEMP 36.6–37; O2SAT 90–95
[2016-12-19] MEDS: PIPERACILL/TAZOBAC IV 3.375 GM in DEXTROSE 5% 100ML 100 ML IV SCH ×3 (00:22→16:20)
[2016-12-19] MEDS: LACTATED RINGER'S 1000ML 1,000 ML IV SCH ×4 (03:38→21:29)
--- NOTE | 2016-12-19 07:00 | Surgery Progress Note ---
Surgery Progress Note Date of Service December 19, 2016. Subjective Post OP Day: 2 + complaints (pain better), + diet, + feeling well (better with iraheta), No bowel movement, No flatus, No nausea, No vomiting Objective Vital Signs: Date Time Temp Pulse Resp B/P Pulse Ox O2 Delivery O2 Flow Rate FiO2 12/19/16 00:15 Nasal Cannula 2.0 12/18/16 22:55 92 Nasal Cannula 2.0 12/18/16 22:50 36.6 93 18 117/76 88 Room Air 12/18/16 19:38 89 16 92 Room Air 12/18/16 16:45 Room Air 12/18/16 15:14 98 16 92 Room Air 12/18/16 14:58 36.5 89 18 132/76 92 Room Air 12/18/16 11:51 36.6 96 18 119/78 91 Room Air 12/18/16 11:04 98 16 92 Room Air 12/18/16 08:00 Room Air 12/18/16 07:23 83 14 92 Room Air Physical Exam: nasogastric drainage (slowing) General Appearance: WD/WN, no apparent distress Head: normocephalic, atraumatic Neck: supple, trachea midline Respiratory/Chest: chest non-tender, lungs clear Cardiovascular: regular rate, rhythm Abdomen: normal bowel sounds, non distended, soft, + tenderness Incision(s): clean, dry, intact Extremities: non-tender, no pedal edema Laboratory Results: Results Past 24 Hours Test 12/19/16 06:47 Range/Units Assessment & Plan s/p UHR w/SB resection -remove ngt -leave iraheta till tomorrow -ambulate -sips only
[2016-12-19 07:04] LABS: BASO % 0.5 %; BASO ABS # 0.04 K/uL (0-0.2); COMPLETE YES; EOS % 1.3 %; HEMATOCRIT 35.5 % (42-52); IG% 0.1 %; LYMPH % 17.9 %; LYMPH ABS # 1.51 K/uL (1.2-3.4); MEAN CORPUSCULAR HEMOGLOBIN 27.8 pg (25-34); MEAN CORPUSCULAR HGB CONC 32.4 g/dl (32-36); MEAN PLATELET VOLUME 8.7 fL (7.4-10.4); MONO % 11.4 %; NEUT % 68.8 %; PLATELET COUNT 244 K/uL (130-400); RED BLOOD COUNT 4.13 M/uL (4.7-6.1); WHITE BLOOD COUNT 8.45 K/uL (4.8-10.8)
[2016-12-19] MEDS: FLUTICASONE/SALMETEROL 100/50 (ADVAIR) 14 PUFF/1 INHALER INH SCH ×2 (07:22→20:51)
[2016-12-19] MEDS: TAMSULOSIN HCL 0.4 MG CAP PO SCH (07:22)
[2016-12-19] MEDS: VENLAFAXINE HCL 37.5 MG TAB PO SCH ×2 (07:22→20:51)
[2016-12-19] MEDS: BusPIRone 15 MG TAB PO SCH ×2 (07:22→20:51)
[2016-12-19] MEDS: ALBUT/IPRATROP 3MG/0.5MG NEB 3 ML VIAL INH SCH ×4 (07:39→19:35)
[2016-12-19] MEDS: PANTOprazole INJ 40 MG in SYRINGE 0 ML IV SCH (11:14)
[2016-12-19] MEDS ORDERED: NURSING VERBAL MED ORDER ONE (12:00)
--- NOTE | 2016-12-19 15:22 | Progress Note ---
Subjective Date of Service: December 19, 2016. Subjective Pt evaluation today including: physical exam, chart review, lab review, review of studies, review of inpatient medication list NG tube removed, no nausea vomiting , no SOB, no fever or chill, denied chest pain Problem List Medical Problems: (1) PNA (pneumonia) Status: Acute (2) Small bowel obstruction Status: Acute Review of Systems Constitutional: No chills, No fatigue, No fever, No problem reported, No sweats , No weakness, No weight loss Eyes: No diplopia, No discharge, No eye pain, No redness, No worsening of vision ENT: No dental problems, No hearing loss, No nasal symptoms, No sore throat, No tinnitus, No trouble swallowing, No unusual epistaxis Respiratory: No cough, No dyspnea at rest, No dyspnea on exertion, No hemoptysis, No shortness of breath, No sputum, No wheezing Cardiac: No PND, No chest pain, No claudication, No edema, No orthopnea, No palpitations Abdomen: No constipation, No diarrhea, No nausea, No pain, No vomiting Musculoskeletal: No calf pain, No joint pain, No muscle pain, No swelling Male : No dysuria, No hematuria, No incontinence, No nocturia more than once/ night, No slowing stream, No urinary frequency Neurologic: No balance problems, No memory loss, No numbness/tingling, No paralysis, No vertigo, No weakness Psychiatric: No anhedonism, No anxiety, No depression symptoms, No insomnia, No substance abuse Heme: No abnormal bleeding/bruising, No clotting problems, No night sweats, No swollen lymph nodes Endo: No excessive thirst, No excessive urination, No fatigue Skin: No bleeding, No color change, No itch, No new/changing skin lesions, No rash Objective Vital Signs Date Time Temp Pulse Resp B/P Pulse Ox O2 Delivery O2 Flow Rate FiO2 12/19/16 15:07 37.0 80 16 104/66 92 Room Air 12/19/16 11:19 85 16 92 Room Air 12/19/16 08:00 94 Room Air 12/19/16 07:39 88 16 95 Room Air 12/19/16 07:03 36.6 84 16 116/72 90 Room Air 12/19/16 00:15 Nasal Cannula 2.0 12/18/16 22:55 92 Nasal Cannula 2.0 12/18/16 22:50 36.6 93 18 117/76 88 Room Air 12/18/16 19:38 89 16 92 Room Air 12/18/16 16:45 Room Air Physical Exam General Appearance: WD/WN, no apparent distress Eyes: normal inspection, PERRL, EOMI, sclerae normal ENT: normal ENT inspection, hearing grossly normal, pharynx normal Neck: supple, no adenopathy, thyroid normal, no JVD, no carotid bruits, trachea midline Respiratory/Chest: chest non-tender, lungs clear, normal breath sounds, no respiratory distress, no accessory muscle use, + decreased breath sounds Cardiovascular: regular rate, rhythm, no edema, no gallop, no JVD, no murmur Abdomen: normal bowel sounds, non tender, soft, no organomegaly, no pulsatile mass Extremities: normal range of motion, non-tender, normal inspection, no pedal edema, no calf tenderness, normal capillary refill, pelvis stable Neurologic/Psychiatric: cartridge loader II-XII nml as tested, no motor/sensory deficits, alert, normal mood/affect, oriented x 3 Skin: normal color, warm/dry, no rash Lymphatic: no adenopathy Laboratory Results Last 24 Hours Test 12/19/16 06:47 White Blood Count 8.45 K/uL Red Blood Count 4.13 M/uL Hemoglobin 11.5 g/dL Hematocrit 35.5 % Mean Corpuscular Volume 86.0 fL Mean Corpuscular Hemoglobin 27.8 pg Mean Corpuscular Hemoglobin Concent 32.4 g/dl Platelet Count 244 K/uL Mean Platelet Volume 8.7 fL Neutrophils (%) (Auto) 68.8 % Lymphocytes (%) (Auto) 17.9 % Monocytes (%) (Auto) 11.4 % Eosinophils (%) (Auto) 1.3 % Basophils (%) (Auto) 0.5 % Neutrophils # (Auto) 5.82 K/uL Lymphocytes # (Auto) 1.51 K/uL Monocytes # (Auto) 0.96 K/uL Eosinophils # (Auto) 0.11 K/uL Basophils # (Auto) 0.04 K/uL RDW Standard Deviation 55.8 fL RDW Coefficient of Variation 17.7 % Immature Granulocyte % (Auto) 0.1 % Immature Granulocyte # (Auto) 0.01 K/uL Assessment and Plan A/P: 56 y/o male s/p umbillical hernia repair, SB resection for incarcerated hernia -pain management, DVT prophylaxis, PT per primary team Pneumonia s/p incarcerated hernia repair POD 1 that is also suffering from bilateral pna Bilateral PNA with a history of asthma: Stable continue with the zosyn, nebulizer treatment, cont advair Possible can change to oral Augmentin for total 10 days upon discharge from surgical service Depression/ Anxiety - continue buspar, venlafaxine and abilify once able to tolerate PO BPH - continue flomax when able to tolerate PO DVT prophylaxis will be per primary team Continued [facility] stay due to: multiple IV medications needed Discharge planning: home
[2016-12-20] MEDS: PIPERACILL/TAZOBAC IV 3.375 GM in DEXTROSE 5% 100ML 100 ML IV SCH ×4 (00:15→23:36)
[2016-12-20] MEDS: ALUMINUM/MAGNESIUM SUSP 30 ML UDC PO PRN ×2 (01:39→07:47)
[2016-12-20 07:20] VITALS: BP 122/76; PULSE 88; TEMP 36.7; O2SAT 91
[2016-12-20 07:57] VITALS: PULSE 87; O2SAT 98
[2016-12-20] MEDS: ALBUT/IPRATROP 3MG/0.5MG NEB 3 ML VIAL INH SCH ×2 (07:57→11:36)
[2016-12-20] MEDS: FLUTICASONE/SALMETEROL 100/50 (ADVAIR) 14 PUFF/1 INHALER INH SCH (09:11)
[2016-12-20] MEDS: LACTATED RINGER'S 1000ML 1,000 ML IV SCH ×2 (09:11→18:54)
[2016-12-20] MEDS: VENLAFAXINE HCL 37.5 MG TAB PO SCH ×2 (09:12→21:09)
[2016-12-20] MEDS: TAMSULOSIN HCL 0.4 MG CAP PO SCH (09:13)
[2016-12-20] MEDS: BusPIRone 15 MG TAB PO SCH ×2 (09:13→21:09)
--- NOTE | 2016-12-20 10:31 | Surgery Progress Note ---
Surgery Progress Note Date of Service December 20, 2016. Subjective Post OP Day: 3 not feeling well, didn't sleep last night due to indigestion Maalox helped Minimal abdominal pain Passing flatus, small amounts No nausea or vomiting Objective Vital Signs: Date Time Temp Pulse Resp B/P Pulse Ox O2 Delivery O2 Flow Rate FiO2 12/20/16 07:57 87 12 98 Room Air 12/20/16 07:45 Room Air 12/20/16 07:20 36.7 88 19 122/76 91 Room Air 12/20/16 00:20 Room Air 12/19/16 22:55 36.7 85 16 109/72 90 Room Air 12/19/16 19:40 95 16 91 Room Air 12/19/16 16:15 Room Air 12/19/16 15:42 95 16 91 Room Air 12/19/16 15:07 37.0 80 16 104/66 92 Room Air 12/19/16 11:19 85 16 92 Room Air General Appearance: WD/WN, no apparent distress Head: normocephalic, atraumatic Neck: trachea midline Respiratory/Chest: no respiratory distress, no accessory muscle use, + wheezing (expiratory) Cardiovascular: regular rate, rhythm, no murmur Abdomen: non distended, soft, + tenderness (minimal at incision site) Incision(s): clean, dry, intact, no erythema, no drainage, findings (external shade present) Assessment & Plan POD # 3 s/p incarcerated umbilical hernia repair with small bowel resection - Vitals stable - Indigestion overnight, no vomiting - minimal flatus, no bm - pain controlled Plan: Continue NPO except ice chips for now, may have PO meds with sips, will likely advance diet to clears this afternoon 1 mg Ativan IV q 8 hours prn anxiety Continue IV fluids and IV antibiotics Continue pain management prn encourage incentive spirometry Encourage OOB to chair and ambulation Daily dressing changes Cornejo catheter most likely will be removed tomorrow Dr. Taylor has seen patient and agrees with above.
[2016-12-20] MEDS: PANTOprazole INJ 40 MG in SYRINGE 0 ML IV SCH (11:28)
[2016-12-20 11:30] VITALS: PULSE 102; O2SAT 92
[2016-12-20] MEDS ORDERED: PANTOprazole INJ 40 MG in SYRINGE 0 ML IV SCH (11:45)
[2016-12-20] MEDS ORDERED: ZOLPIDEM TARTRATE 5 MG TAB PO PRN (11:45)
--- NOTE | 2016-12-20 11:51 | Hospitalist Progress Note ---
Hospitalist Progress Note Date of Service December 20, 2016. Subjective Pt evaluation today including: conversation w/ patient, physical exam, chart review, lab review, conversation w/ organization development consultant, review of inpatient medication list Patient reports abdominal pain is tolerable. The pain meds are not helping. He denies any nausea. He does admit to belching. He has had very little flatness. No bowel movements yet. He denies any feverish symptoms, however he does complain about feeling hot. He admits to a very poor night's sleep last night. He is still feeling anxious and depressed. He is concerned that he will not be able to urinate when the Cornejo catheter comes out because we are not giving him his home dose of Flomax, which is 0.8 mg daily Additional Comments: 6 system review negative. Please see pertinent positives in the history of present illness section. Objective Vital Signs Date Time Temp Pulse Resp B/P Pulse Ox O2 Delivery O2 Flow Rate FiO2 12/20/16 11:30 102 16 92 Room Air 12/20/16 07:57 87 12 98 Room Air 12/20/16 07:45 Room Air 12/20/16 07:20 36.7 88 19 122/76 91 Room Air 12/20/16 00:20 Room Air 12/19/16 22:55 36.7 85 16 109/72 90 Room Air 12/19/16 19:40 95 16 91 Room Air 12/19/16 16:15 Room Air 12/19/16 15:42 95 16 91 Room Air 12/19/16 15:07 37.0 80 16 104/66 92 Room Air Physical Exam General Appearance: + mild distress (anxious in appearance.) Eyes: EOMI Neck: no JVD Respiratory/Chest: + pertinent finding (moderate wheezing diffusely. Decreased breath sounds at the right base.) Cardiovascular: regular rate, rhythm Abdomen: soft, + pertinent finding (bowel sounds present, but hypoactive. Mild diffuse tenderness. Incision is clean, dry and intact.) Extremities: non-tender, no pedal edema Neurologic/Psychiatric: no motor/sensory deficits, oriented x 3 Skin: warm/dry Assessment and Plan A/P: 56 y/o male s/p umbillical hernia repair, SB resection for incarcerated hernia -pain management, DVT prophylaxis, PT per primary team Pneumonia/Asthma-wheezy today -continue zosyn for now as pt is still not taking clears -change to augmentin...total course 10 days ABX -increase advair to 500/50 (actual home dose) -continue duonebs -repeat cxr in 2 weeks to ensure resolution Depression/ Anxiety - continue buspar, venlafaxine and abilify Insomnia -ambien 5 mg HS prn anxiety -ativan 1 mg IV q 8 hr ordered BPH -increased flomax to home dose 0.8 mg daily We will continue to follow This chart was completed in part utilizing [employer] Speech Voice Recognition software. Attempts were made to minimize the grammatical errors, random word insertions, pronoun errors and incomplete sentences. Any formal questions or concerns about the content, text or information contained within the body of this dictation should be directly addressed to the provider for clarification.
[2016-12-20 15:05] VITALS: BP 114/71; PULSE 94; TEMP 36.7; O2SAT 91
[2016-12-20] MEDS: IPRATROPIUM BROMIDE/ALBUTEROL respimat INH INH SCH ×3 (16:33→21:09)
[2016-12-20] MEDS ORDERED: NURSING VERBAL MED ORDER ONE (18:30)
[2016-12-20 19:10] VITALS: O2SAT 99
[2016-12-20] MEDS: FLUTICASONE/SALMETEROL (ADVAIR) 500/50 INH 14 PUFF INH SCH (21:09)
[2016-12-20 23:32] VITALS: BP 112/68; PULSE 95; TEMP 36.9; O2SAT 99
[2016-12-21] MEDS: LACTATED RINGER'S 1000ML 1,000 ML IV SCH ×2 (03:59→14:06)
[2016-12-21] MEDS: FLUTICASONE/SALMETEROL (ADVAIR) 500/50 INH 14 PUFF INH SCH ×2 (07:14→20:38)
[2016-12-21] MEDS: BusPIRone 15 MG TAB PO SCH ×2 (07:15→20:39)
[2016-12-21] MEDS: VENLAFAXINE HCL 37.5 MG TAB PO SCH ×2 (07:15→20:38)
[2016-12-21] MEDS: IPRATROPIUM BROMIDE/ALBUTEROL respimat INH INH SCH ×4 (07:15→20:38)
[2016-12-21] MEDS: PANTOprazole SOD 40 MG TAB PO SCH (07:16)
[2016-12-21] MEDS: TAMSULOSIN HCL 0.4 MG CAP PO SCH (07:16)
[2016-12-21] MEDS: PIPERACILL/TAZOBAC IV 3.375 GM in DEXTROSE 5% 100ML 100 ML IV SCH (07:16)
[2016-12-21 07:32] VITALS: BP 107/69; PULSE 71; TEMP 36.7; O2SAT 91
--- NOTE | 2016-12-21 07:41 | Surgery Progress Note ---
Surgery Progress Note Date of Service December 21, 2016. Subjective Post OP Day: 4 + bowel movement, + diet (clears), + feeling well, + flatus, No complaints, No nausea, No vomiting Objective Vital Signs: Date Time Temp Pulse Resp B/P Pulse Ox O2 Delivery O2 Flow Rate FiO2 12/21/16 07:32 36.7 71 19 107/69 91 Room Air 12/20/16 23:40 Room Air 12/20/16 23:32 36.9 95 20 112/68 99 Room Air 12/20/16 19:10 99 Room Air 12/20/16 18:00 Room Air 12/20/16 16:00 Room Air 12/20/16 15:05 36.7 94 18 114/71 91 Room Air 12/20/16 11:30 102 16 92 Room Air 12/20/16 07:57 87 12 98 Room Air 12/20/16 07:45 Room Air General Appearance: WD/WN, no apparent distress Head: normocephalic, atraumatic Neck: supple, trachea midline Respiratory/Chest: lungs clear Cardiovascular: regular rate, rhythm Abdomen: normal bowel sounds, non distended, soft, + tenderness Incision(s): clean, dry, intact Extremities: non-tender, no pedal edema Laboratory Results: Results Past 24 Hours Test 12/21/16 06:40 Range/Units Assessment & Plan s/p UHR w/SB resection -remove iraheta -ambulate -full liquids possible DC in AM
[2016-12-21] MEDS ORDERED: OXYC-57 PO (07:42)
--- NOTE | 2016-12-21 07:44 | Discharge Instructions ---
Discharge Instructions Date of Service December 21, 2016. Admission Reason for Admission: Incarcerated Hernia Discharge Discharge Diagnosis / Problem: s/p UHR w/SB resection Discharge Goals Goal(s): Therapeutic intervention Activity Recommendations Activity Limitations: per Instructions/Follow-up section Lifting Limitations: no more than 10 pounds Exercise/Sports Limitations: until after follow-up appointment May Resume Sexual Activity: after follow-up appointment Shower/Bathe: no limitations Driving or Machine Use: resume 3 days after discharge (as long carlitos not taking narcotics) . Instructions / Follow-Up Instructions / Follow-Up Claudia; 2 weeks; [phone] Current Hospital Diet Patient's current hospital diet: Full Liquid Diet Discharge Diet Recommended Diet: Regular Diet Procedures Procedures Performed: Incarcerated Umbilical Hernia Repair; Small Bowel Resection Pending Studies Studies pending at discharge: no Laboratory Results Hemoglobin A1c Test 12/18/16 05:30 Range/Units Estimated Average Glucose 120 mg/dl Hemoglobin A1c 5.8 H 4.5-5.6 % Work Instructions Return To Work: after follow-up Lifting Limitations: no more than 20 pounds Medical Emergencies . Who to Call and When: Medical Emergencies: If at any time you feel your situation is an emergency, please call 911 immediately. . Non-Emergent Contact Non-Emergency issues call your: Primary Care Provider, Surgeon Call Non-Emergent contact if: temperature is above 101.5, your pain is not controlled, your pain is worsening, your pain is unusual for you, your pain is concerning you, wound has increased redness, wound has increased pain, you have any medication questions . "Provider Documentation" section prepared by Lalit Taylor. . VTE Core Measure Inpt VTE Proph given/why not?: SCD's, Contraindicated [place] Drug Monitoring Program Search Results: patient reviewed within database, no issues identified
[2016-12-21 07:46] LABS: BUN/CREATININE RATIO 15.2 (10-20); CALCIUM 7.8 mg/dl (8.5-10.1); CREATININE 0.93 mg/dl (0.60-1.40); MAGNESIUM 2.3 mg/dl (1.8-2.4); POTASSIUM 3.6 mmol/L (3.5-5.1)
[2016-12-21 08:00] VITALS: O2SAT 91
[2016-12-21] MEDS: LACTOBACILLUS ACIDOPHILUS 1 GM PACK PO SCH ×2 (13:05→18:19)
[2016-12-21 15:14] VITALS: BP 108/71; PULSE 73; TEMP 36.5; O2SAT 95
--- NOTE | 2016-12-21 15:50 | Hospitalist Progress Note ---
Hospitalist Progress Note Date of Service December 21, 2016. Subjective Pt evaluation today including: conversation w/ patient, physical exam, chart review, lab review, review of inpatient medication list Patient reports minimal abdominal pain today. Denies any nausea. Passing gas and had a small bowel movement this morning it was liquid. He denies any blood in his stool. No fever or chills. Denies feeling short of breath. Still has a productive cough. He notes that this is chronic. Additional Comments: 6 system review negative. Please see pertinent positives in the history of present illness section. Objective Vital Signs Date Time Temp Pulse Resp B/P Pulse Ox O2 Delivery O2 Flow Rate FiO2 12/21/16 15:14 36.5 73 18 108/71 95 Room Air 12/21/16 08:00 91 Room Air 12/21/16 07:32 36.7 71 19 107/69 91 Room Air 12/20/16 23:40 Room Air 12/20/16 23:32 36.9 95 20 112/68 99 Room Air 12/20/16 19:10 99 Room Air 12/20/16 18:00 Room Air 12/20/16 16:00 Room Air Physical Exam General Appearance: no apparent distress, + mild distress Eyes: EOMI Neck: no JVD Respiratory/Chest: + pertinent finding (coarse breath sounds at the bases bilaterally. Wheezing improved. No tachypnea.) Cardiovascular: regular rate, rhythm Abdomen: soft, + pertinent finding (his significant tenderness to palpation. Incision clean, dry and intact. Bowel sounds present.) Extremities: non-tender, no pedal edema Neurologic/Psychiatric: no motor/sensory deficits, oriented x 3 Laboratory Results Last 24 Hours Test 12/21/16 06:40 Sodium Level 143 mmol/L Potassium Level 3.6 mmol/L Chloride Level 111 mmol/L Carbon Dioxide Level 24 mmol/L Anion Gap 8.0 mmol/L Blood Urea Nitrogen 14 mg/dl Creatinine 0.93 mg/dl Est Creatinine Clear Calc Drug Dose 93.3 ml/min Estimated GFR () 105.2 Estimated GFR (Non- 90.8 BUN/Creatinine Ratio 15.2 Random Glucose 84 mg/dl Calcium Level 7.8 mg/dl Magnesium Level 2.3 mg/dl Assessment and Plan A/P: 56 y/o male s/p umbillical hernia repair, SB resection for incarcerated hernia -pain management, DVT prophylaxis, PT per primary team Pneumonia/Asthma-wheezing improved today -continue advair BID, duonebs -change zosyn to po augmentin -repeat cxr in 2 weeks to ensure resolution Depression/ Anxiety - continue buspar, venlafaxine and abilify Insomnia-improved -ambien 5 mg HS prn anxiety -ativan 1 mg IV q 8 hr ordered BPH-pt voiding on his own -flomax 0.8 mg daily We will continue to follow This chart was completed in part utilizing [email or web address] Speech Voice Recognition software. Attempts were made to minimize the grammatical errors, random word insertions, pronoun errors and incomplete sentences. Any formal questions or concerns about the content, text or information contained within the body of this dictation should be directly addressed to the provider for clarification.
[2016-12-21] MEDS: AMOXICILLIN/CLAVULANATE TAB 875 MG TAB PO SCH (18:19)
[2016-12-21 22:43] VITALS: BP 113/72; PULSE 78; TEMP 36.8; O2SAT 94
[2016-12-22] MEDS: LACTATED RINGER'S 1000ML 1,000 ML IV SCH (05:26)
[2016-12-22 07:15] VITALS: BP 112/73; PULSE 67; TEMP 36.7; O2SAT 93
--- NOTE | 2016-12-22 07:39 | Surgery Progress Note ---
Surgery Progress Note Date of Service December 22, 2016. Subjective Post OP Day: 5 + ambulating, + bowel movement, + diet (tolerated regular diet last evening), + feeling well, + flatus, + pain controlled, No SOB, No chest pain, No complaints , No nausea, No vomiting Objective Vital Signs: Date Time Temp Pulse Resp B/P Pulse Ox O2 Delivery O2 Flow Rate FiO2 12/22/16 07:15 36.7 67 17 112/73 93 Room Air 12/21/16 23:40 Room Air 12/21/16 22:43 36.8 78 16 113/72 94 Room Air 12/21/16 15:45 Room Air 12/21/16 15:14 36.5 73 18 108/71 95 Room Air 12/21/16 08:00 91 Room Air General Appearance: WD/WN, no apparent distress Head: normocephalic, atraumatic Neck: trachea midline Respiratory/Chest: no respiratory distress, no accessory muscle use Abdomen: non distended, soft, no organomegaly, + tenderness (at incision site, mild, appropriate post op) Incision(s): clean, dry, intact, no erythema, no drainage, findings (shade present) Assessment & Plan POD # 5 s/p incarcerated umbilical hernia repair with small bowel resection - Vitals stable - + bowel function - pain minimal - adequate urine output Plan: d/c IV fluids D/c home today Rx for Percocet will be given Rx for Augmentin for 5 days Follow-up with PCP as scheduled on 12/26/16 Follow-up with Dr. Taylor in 2 weeks Discharge instructions given Dr. Zurita has seen and examined patient , agrees with above
[2016-12-22] MEDS ORDERED: AMOX1TAB43 PO (07:42)
[2016-12-22] MEDS: LACTOBACILLUS ACIDOPHILUS 1 GM PACK PO SCH (08:53)
[2016-12-22] MEDS: AMOXICILLIN/CLAVULANATE TAB 875 MG TAB PO SCH (08:53)
[2016-12-22] MEDS: IPRATROPIUM BROMIDE/ALBUTEROL respimat INH INH SCH (08:54)
[2016-12-22] MEDS: BusPIRone 15 MG TAB PO SCH (08:54)
[2016-12-22] MEDS: VENLAFAXINE HCL 37.5 MG TAB PO SCH (08:54)
[2016-12-22] MEDS: FLUTICASONE/SALMETEROL (ADVAIR) 500/50 INH 14 PUFF INH SCH (08:54)
[2016-12-22] MEDS: TAMSULOSIN HCL 0.4 MG CAP PO SCH (08:55)
[2016-12-22] MEDS: PANTOprazole SOD 40 MG TAB PO SCH (08:55)
--- NOTE | 2016-12-22 09:02 | Discharge Summary ---
Discharge Summary Dates Admission Date / Time: December 17, 2016 at 18:20 Discharge Date: December 22, 2016 Dispostion / Condition Discharge Disposition: Home Condition at Discharge: Good Principal Diagnosis (1) Incarcerated hernia Problem List (1) Incarcerated hernia (2) Small bowel obstruction (3) PNA (pneumonia) Consultations / Procedures Consultations: Medicine Procedures: Incarcerated umbilical hernia repair with small bowel resection Pending Studies / Follow-Up None Medication Reconciliation New Medications: Oxycodone/Acetaminophen 5MG/325MG (Percocet 5MG/325MG) Tab 1 TABLET PO Q6H PRN for Pain, #30 TAB Amoxicillin & Pot Clavulanate (Amoxicillin/Clavulanate P) 1 Tab Tab 875 MG PO BIDM for 5 Days, #10 TAB 0 Refills Continued Medications: Aripiprazole (Abilify) 2 Mg Tab 1 TAB PO DAILY for 30 Days, #30 TAB 2 Refills Buspirone Hcl (Buspar) 15 Mg Tab 1 TAB PO BID for 30 Days, #60 TAB Calcium Carbonate-Mag Hydrox (Antacid) 1 Chw Chw Fluticasone Prop/Salmeterol (Advair Diskus 100-50 Mcg/Dose) 14 Puff/1 Inhaler Aerp Pantoprazole (Protonix) 40 Mg Tab 40 MG PO DAILY, #30 TAB Tamsulosin Hcl (Flomax) 0.4 Mg Cap 1 CAP PO DAILY for 30 Days, #30 CAP 5 Refills Venlafaxine Hcl (Effexor) 37.5 Mg Tab 1 TAB PO BID for 30 Days, #60 TAB 1 Refill Admission HPI Per the Admitting provider: The patient is a 56 year old male with an incarcerated umbilical hernia causing a SBO and possible aspiration pneumonia. He presents with abdominal pain since yesterday and subsequently started vomiting. He notes that there is a hard area around his umbilicus. His nausea & vomiting has been persistent since yesterday. The patient has not had any surgeries of the abdomen. His last bowel movement was two days ago which was normal. The patient has a history of asthma, acid reflux, and prostate disease. He denies LOC, headache, fevers, chills, diaphoresis, visual changes, neck pain, chest pain, breathing difficulties, back pain, melena, hematochezia, urinary symptoms, numbness, weakness, lymphadenopathy, rash, or other complaints. A CT scan shows SB in his umbilical hernia causing a SBO. Admission Exam Per the Admitting provider: General Appearance: no apparent distress Head: normocephalic, atraumatic Eyes: normal inspection ENT: normal ENT inspection Neck: supple Respiratory/Chest: lungs clear, no respiratory distress, no accessory muscle use Cardiovascular: regular rate, rhythm, no murmur Abdomen/GI: + pertinent finding (s/p hernia repair, abd exam deferred) Back: normal inspection Extremities/Musculoskelatal: no calf tenderness, no pedal edema Neurologic/Psych: alert, normal mood/affect, oriented x 3 Skin: normal color, warm/dry, no rash Lymphatic: no adenopathy Hospital Course (1) Small bowel obstruction Patient was taken to operating room for umbilical hernia repair and small bowel resection. He tolerated procedure well and was transferred to PACU and then med /surg floor in stable condition. An NGT was placed. IV fluids, IV pain management, IV Zofran, and IV antibiotics (Zosyn) were started. POD # 1 patient was having considerable anxiety due to the NGT. Rush he was gagging and unable to swallow. He was given 1 mg of Ativan IV stat and then schedule TID as needed. NGT had bilious output and therefore was kept. Kept NPO. Medicine was consulted for possible aspiration pneumonia. The evening of POD # 1 he had urinary retention with history of BPH. Bladder scan showed 760 mls and a iraheta catheter was placed. POD # 2 NGT was removed and started on sips only. Iraheta was kept in place. POD # 3 he had some indigestion overnight therefore was kept NPO for the morning and then advanced to clear liquids at dinner. Iraheta Kept one more day. POD # 4 patient felt much better. Iraheta catheter removed. Full liquids started and then regular diet at dinner. +bowel function and minimal pain. POD # 5 patient was discharged home with Oral Percocet and Oral Augmentin for 5 more days (total of 10 days of abx). Overall hospital course was uneventful. (2) Incarcerated hernia refer to above (3) PNA (pneumonia) He was given IV Zosyn during his hospital stay and switched to oral Augmentin on POD # 4. He was discharged with Augmentin on POD # 5 for 5 more days to make a total of 10 days with antibiotics. He will follow-up with PCP on 5/30/ 2017. Total Time Total Time Spent (min): 30 Total Time Includes: examination of the patient, medication reconciliation Discharge Instructions As given to patient Copies To Primary Care Provider: Jett Kent M.D.. Problem Qualifiers (1) PNA (pneumonia): Pneumonia type: aspiration pneumonia Aspiration pneumonia type: due to vomit
[2016-12-22 09:50] VITALS: BP 112/73; PULSE 67; TEMP 36.7; O2SAT 93
--- NOTE | 2016-12-22 14:18 | Hospitalist Progress Note ---
Hospitalist Progress Note Date of Service December 22, 2016. Subjective Pt evaluation today including: conversation w/ patient, physical exam, chart review, review of inpatient medication list Patient denies any abdominal pain. He reportedly is comfortable. He had a bowel movement today. It was more solid. He denies any blood. No fever or chills. He is coughing less. Denies any shortness of breath. Additional Comments: 6 system review negative. Please see pertinent positives in the history of present illness section. Objective Vital Signs Date Time Temp Pulse Resp B/P Pulse Ox O2 Delivery O2 Flow Rate FiO2 12/22/16 09:50 36.7 67 17 93 Room Air 12/22/16 07:50 Room Air 12/22/16 07:15 36.7 67 17 112/73 93 Room Air 12/21/16 23:40 Room Air 12/21/16 22:43 36.8 78 16 113/72 94 Room Air 12/21/16 15:45 Room Air 12/21/16 15:14 36.5 73 18 108/71 95 Room Air Physical Exam General Appearance: no apparent distress Eyes: EOMI Neck: no JVD Respiratory/Chest: + pertinent finding (coarse BS L mid lung. Minimal wheezing.) Cardiovascular: regular rate, rhythm Abdomen: soft, + pertinent finding (mild tenderness to palpation in the epigastric region. No guarding or rebound tenderness. No distention noted. Bowel sounds present, but hypoactive.) Extremities: non-tender, no pedal edema Neurologic/Psychiatric: no motor/sensory deficits, oriented x 3 Skin: warm/dry Assessment and Plan A/P: 56 y/o male s/p umbillical hernia repair, SB resection for incarcerated hernia -pain management, DVT prophylaxis, PT per primary team Pneumonia/Asthma-wheezing improved today -Rx on chart for Augmentin x 5 days -Advair BID and duonebs-->continue upon d/c -repeat cxr in 2 weeks to ensure resolution Depression/ Anxiety - continue buspar, venlafaxine and abilify Insomnia-improved -ambien 5 mg HS prn anxiety-improved BPH-pt voiding on his own -flomax 0.8 mg daily Stable for D/C from a medical stand point. The medicine service will sign off. Please contact the [facility] Hospitalist for any further medical concerns. This chart was completed in part utilizing [employer] Speech Voice Recognition software. Attempts were made to minimize the grammatical errors, random word insertions, pronoun errors and incomplete sentences. Any formal questions or concerns about the content, text or information contained within the body of this dictation should be directly addressed to the provider for clarification.
== END 2016-12-22 11:18 | disposition home or self-care (01) | DRG 329 ==
LOC: ENRESERVTM → ENRESERVDT → C.EDB 16:09 → C.MSW 18:20
PROVIDERS: ADMIT Surgery; ATTEND Surgery
PROC: 0WQF0ZZ Repair Abdominal Wall, Open Approach (ICD-10-PCS; principal; 2016-12-17 18:30)
PROC: 0DB80ZZ Excision of Small Intestine, Open Approach (ICD-10-PCS; principal; 2016-12-17 18:30)
DX: K42.1 Umbilical hernia with gangrene (principal); J18.9 Pneumonia, unspecified organism; J45.909 Unspecified asthma, uncomplicated; K21.9 Gastro-esophageal reflux disease without esophagitis; Z82.49 Family history of ischemic heart disease and other diseases of the circulatory system; F32.9 Major depressive disorder, single episode, unspecified; F41.9 Anxiety disorder, unspecified; N40.1 Benign prostatic hyperplasia with lower urinary tract symptoms; G47.00 Insomnia, unspecified; R33.8 Other retention of urine

== ENCOUNTER 2023-12-18 17:36 | Inpatient (IN) ==
--- NOTE | 2023-12-18 18:03 | Emergency Department Note ---
Impression & Plan Chest pain, Pulmonary embolism, Acute dyspnea ED Provider Note HISTORY OF PRESENT ILLNESS: Patient is a 63-year-old male presenting with chest pain and shortness of breath. Patient reports for the last 5 days he been having intermittent episodes of chest pain. Patient reports the pain is a pressure-like sensation. Reports it started 5 days ago and seems to come and go intermittently throughout the day over the last 5 days. He reports that today's episode started at 1300 while he was eating lunch. Reports has been a constant pressure sensation but seems to wax and wane in intensity. Reports that he has a history of asthma and has been using his albuterol inhalers, but he has never had chest pressure like this before. Denies any recent fevers. Denies any DVT or PE history. Denies any history of cardiac stents. He is not on any anticoagulation. He rates the pain an 8 out of 10 at this time. He denies any abdominal pain, headache or changes in vision. He reports feeling generalized weakness. ROS: as above PHYSICAL EXAM: Constitutional: Patient appears in no acute distress. HENT: Head: Normocephalic and atraumatic. Eyes: EOMI, PERRL Mouth/Throat: Mucous membranes moist. Neck: Trachea midline. Neck supple. Cardiovascular: RRR, No murmurs, rubs or gallops. Intact distal pulses. Pulmonary/Chest: No respiratory distress. Breath sounds clear and equal bilaterally. No wheezes or rales. Abdominal: Abdomen soft, no tenderness, rebound or guarding. Musculoskeletal: No edema, tenderness or deformity noted. Skin: Warm and dry. No rash, erythema, pallor or cyanosis Psychiatric: Appropriate mood and affect for situation. Neurological: Alert and keenly responsive. CN II-XII grossly intact, moving all extremities equally and fully. MDM: - Vitals signs showed hypertension - History obtained via patient. History as above. - Chronic conditions affecting care: GERD; asthma - Differential diagnoses include, but are not limited to: Acute coronary syndrome; pulmonary embolism; dissection; tension pneumothorax; esophageal rupture; pneumonia - Order placed for continuous cardiac monitoring. At this time, monitor showed rate of 84 bpm with normal sinus rhythm, per my interpretation. - External medical records reviewed. Dobutamine stress echo dated 08/04/2021 was reviewed. Patient had a normal EF of 55 to 60%. - EKG interpreted by myself showed normal sinus rhythm. Rate 92 bpm. QT 338. No acute ischemic changes. - Laboratory workup interpreted by myself showed normal WBC; normal PT/INR; stable electrolytes; normal BNP; normal troponin; CKD (Cr 1.47); normal troponin - Viral respiratory panel negative - CXR negative for pneumonia, per my interpretation - CT PE showed right lower lobe PE with concern for right heart strain. Noted to have a large hiatal hernia - Patient initially given 50 mcg IV fentanyl and 324 mg PO aspirin for chest pain. Given 40 mg IV protonix for hernia. - Low risk HEART score. - Given CT findings concerning for right heart strain, patient will need anticoagulation and echocardiogram. Will admit to hospitalist service - Discussion was had with adult protective caseworker about patient's case and need for admission - Hospitalist consulted for admission - Patient admitted to [facility] hospitalist service for further evaluation and management. ASSESSMENT AND PLAN: Diagnosis: chest pain; acute dyspnea; pulmonary embolism Plan: discharge Past Med/Surg History Problem List (Updated 12/18/23 @ 20:41 by David Leblanc PA-C) Hiatal hernia Pulmonary embolism Impacted cerumen of both ears Palpitation Chest pain Dyspnea on exertion Encounter for pre-operative examination GERD (gastroesophageal reflux disease) (Chronic) Asthma (Chronic) Essential tremor (Chronic) Throat irritation Chronic rhinitis Nasal polyposis Antrochoanal polyp Acquired deviated nasal septum Medical History Asthma Asthma BPH (benign prostatic hyperplasia) GERD (gastroesophageal reflux disease) History of depression History of gastroesophageal reflux (GERD) Hyperlipidemia Temporomandibular joint disorder Tremor Surgical History History of colonoscopy History of surgery on arm Hx of LASIK Hx of vasectomy S/P hernia repair Family History Mother Coronary heart disease Hyperlipidemia Breast cancer Parkinson disease Uncle Coronary heart disease Other No family history of adverse response to anesthesia Social History Smoking Status: Never smoker Tobacco Type: Cigars Cigarettes Per Day: WILL HAVE OCCAS. CIGAR; Second Hand Exposure: Yes ( A CHILD); Do You Dip or Chew Tobacco: No; Hx Alcohol Use: Yes Alcohol type: beer, wine and hard liquor Hx Substance Use: No Preferred Language: U[place] [employer] Inspector Required: No Beliefs That Will Affect Care: None Current Living Situation: Alone Feels Safe at Home: Yes Assistive Devices: None Allergies Allergies Allergy/AdvReac Type Severity Reaction Status Date / Time cat dander Allergy Intermediate SNEEZING Verified 12/18/23 20:35 house dust mite Allergy Intermediate Sneezing Verified 12/18/23 20:35 pollen extracts Allergy Intermediate SNEEZING Verified 12/18/23 20:35 Home Meds Home Medications Medication Instructions Recorded Confirmed finasteride 5 mg tablet 5 mg PO QAM 03/18/19 12/18/23 tamsulosin 0.4 mg capsule 0.8 mg PO DAILY 03/18/19 12/18/23 albuterol sulfate 90 mcg/actuation 1 inh inhalation QID PRN SHORT OF 06/02/20 12/18/23 aerosol inhaler BREATH pantoprazole 40 mg tablet,delayed 40 mg PO QAM 06/02/20 12/18/23 release (Protonix) famotidine 20 mg tablet 20 mg PO HS 07/19/21 12/18/23 atorvastatin 20 mg tablet 20 mg PO DAILY 12/18/23 12/18/23 Previous Rx's Medication Instructions Recorded primidone 50 mg tablet 200 mg (4 x 50 mg) PO TID 90 days 01/17/23 #1,080 tabs Results & Data (ED) Vital Signs Vital Signs - 24 hr 12/18/23 17:39 12/18/23 17:49 12/18/23 17:49 Temperature 36.7 C Temperature Source Temporal Artery Scan Pulse Rate 106 H Pulse Rate [Apical] 90 Pulse Rate from SpO2 Sensor Pulse Rhythm Pulse Rhythm [Apical] Regular Pulse Strength [Apical] Respiratory Rate 18 18 Respiratory Effort / Characteristics Non-Labored Spontaneous Non-Labored Spontaneous Respiratory Depth Normal Normal Respiratory Pattern Regular Blood Pressure 140/81 Blood Pressure [Left Arm] 158/87 H Blood Pressure Mean 100 Blood Pressure Mean [Left Arm] 110 Blood Pressure Position Sitting Pulse Oximetry 96 98 98 Oxygen Delivery Method Room Air Room Air Room Air Sepsis Recent Fever Within 48 Hours No Sepsis New/Unexplained Change in Mental Status No Sepsis Action Taken by Nursing No Action Required 12/18/23 17:49 12/18/23 17:50 12/18/23 17:50 Temperature Temperature Source Pulse Rate 92 H 91 H 90 Pulse Rate [Apical] Pulse Rate from SpO2 Sensor 91 H 91 H Pulse Rhythm Pulse Rhythm [Apical] Pulse Strength [Apical] Respiratory Rate 20 16 Respiratory Effort / Characteristics Respiratory Depth Respiratory Pattern Blood Pressure Blood Pressure [Left Arm] Blood Pressure Mean Blood Pressure Mean [Left Arm] Blood Pressure Position Pulse Oximetry 98 97 Oxygen Delivery Method Sepsis Recent Fever Within 48 Hours Sepsis New/Unexplained Change in Mental Status Sepsis Action Taken by Nursing 12/18/23 18:00 12/18/23 18:00 12/18/23 18:03 Temperature Temperature Source Pulse Rate 87 87 Pulse Rate [Apical] Pulse Rate from SpO2 Sensor 86 Pulse Rhythm Regular Pulse Rhythm [Apical] Pulse Strength [Apical] Respiratory Rate 14 19 Respiratory Effort / Characteristics Respiratory Depth Respiratory Pattern Blood Pressure 124/75 Blood Pressure [Left Arm] Blood Pressure Mean 95 Blood Pressure Mean [Left Arm] Blood Pressure Position Pulse Oximetry 97 97 Oxygen Delivery Method Room Air Sepsis Recent Fever Within 48 Hours Sepsis New/Unexplained Change in Mental Status Sepsis Action Taken by Nursing 12/18/23 18:09 12/18/23 18:09 12/18/23 18:10 Temperature Temperature Source Pulse Rate 81 83 Pulse Rate [Apical] Pulse Rate from SpO2 Sensor 81 82 Pulse Rhythm Pulse Rhythm [Apical] Pulse Strength [Apical] Respiratory Rate 17 13 Respiratory Effort / Characteristics Respiratory Depth Respiratory Pattern Blood Pressure 138/76 Blood Pressure [Left Arm] Blood Pressure Mean 91 Blood Pressure Mean [Left Arm] Blood Pressure Position Pulse Oximetry 96 96 Oxygen Delivery Method Sepsis Recent Fever Within 48 Hours Sepsis New/Unexplained Change in Mental Status Sepsis Action Taken by Nursing 12/18/23 18:20 12/18/23 18:30 12/18/23 18:30 Temperature Temperature Source Pulse Rate 80 79 Pulse Rate [Apical] Pulse Rate from SpO2 Sensor 80 79 Pulse Rhythm Pulse Rhythm [Apical] Pulse Strength [Apical] Respiratory Rate 12 12 Respiratory Effort / Characteristics Respiratory Depth Respiratory Pattern Blood Pressure 137/78 Blood Pressure [Left Arm] Blood Pressure Mean 94 Blood Pressure Mean [Left Arm] Blood Pressure Position Pulse Oximetry 95 95 Oxygen Delivery Method Sepsis Recent Fever Within 48 Hours Sepsis New/Unexplained Change in Mental Status Sepsis Action Taken by Nursing 12/18/23 19:10 Temperature Temperature Source Pulse Rate Pulse Rate [Apical] 75 Pulse Rate from SpO2 Sensor Pulse Rhythm Pulse Rhythm [Apical] Regular Pulse Strength [Apical] Normal Respiratory Rate 17 Respiratory Effort / Characteristics Non-Labored Spontaneous Respiratory Depth Normal Respiratory Pattern Regular Blood Pressure Blood Pressure [Left Arm] 119/77 Blood Pressure Mean Blood Pressure Mean [Left Arm] 91 Blood Pressure Position Pulse Oximetry 96 Oxygen Delivery Method Room Air Sepsis Recent Fever Within 48 Hours Sepsis New/Unexplained Change in Mental Status Sepsis Action Taken by Nursing Laboratory Data 12/18/23 17:51 12/18/23 17:51 Lab Results 12/18/23 12/18/23 12/18/23 Range/Units 17:51 18:35 18:40 WBC 5.75 (4.8-10.8) K/ul RBC 4.43 L (4.70-6.10) M/uL Hgb 11.8 L (14.0-18.0) g/dl Hct 37.0 L (42.0-52.0) % MCV 83.5 (80.0-100.0) fL MCH 26.6 (25.0-34.0) pg MCHC 31.9 L (32.0-36.0) g/dL RDW Std Deviation 46.5 H (36.4-46.3) fL RDW Coeff of Sunshine 15.3 H (11.5-14.5) % Plt Count 292 (130-400) K/uL MPV 9.5 (9.4-12.4) fL Immature Gran % (Auto) 0.2 % Neut % (Auto) 59.0 % Lymph % (Auto) 27.0 % Coal % (Auto) 7.5 % Eos % (Auto) 4.7 % Baso % (Auto) 1.6 % Neut # (Auto) 3.40 (1.40-6.50) K/uL Lymph # (Auto) 1.55 (1.20-3.40) K/uL Coal # (Auto) 0.43 (0.11-0.59) K/uL Eos # (Auto) 0.27 (0.00-0.50) K/uL Baso # (Auto) 0.09 (0.00-0.20) K/uL Immature Gran # (Auto) 0.01 (0.01-0.20) K/uL PT 10.7 (9.0-12.0) Seconds INR 1.0 (0.9-1.1) VBG pH 7.42 H (7.36-7.41) VBG pCO2 36 L (38-50) mmHg VBG pO2 41 mmHg VBG HCO3 23 mmol/L VBG O2 Saturation 74.3 % VBG Base Excess -0.7 mEq/L Sodium 138 (136-145) mmol/L Potassium 4.4 (3.5-5.1) mmol/L Chloride 106 (98-107) mmol/L Carbon Dioxide 21 (21-32) mmol/L Anion Gap 11 (3-11) BUN 22 (6-23) mg/dl Creatinine 1.47 H (0.6-1.4) mg/dl Est Cr Clr Drug Dosing 57.7 ml/min Est GFR ( Amer) 57.6 ml/min Est GFR (Non-Af Amer) 49.7 ml/min BUN/Creatinine Ratio 15.0 (10-20) Glucose 176 H (70-99(Fasting)) mg/dl Calcium 8.8 (8.6-10.3) mg/dl Magnesium 2.0 (1.7-2.4) mg/dl Total Bilirubin 0.2 (0.2-1.0) mg/dl AST 25 (13-39) U/L ALT 29 (7-52) U/L Alkaline Phosphatase 53 (34-104) U/L Troponin I High Sens 3.8 (0-20) pg/ml B-Natriuretic Peptide 19 (0-100) pg/ml Total Protein 7.1 (6.0-8.3) gm/dl Albumin 4.3 (3.4-5.0) gm/dl Globulin 2.8 (2.5-4.0) gm/dl Albumin/Globulin Ratio 1.5 (0.9-2) Adenovirus (PCR) Not Detected (NotDetected) B. pertussis DNA (PCR) Not Detected (NotDetected) B.parapertussis DNA PCR Not Detected (NotDetected) C. pneumoniae DNA (PCR) Not Detected (NotDetected) Coronavirus OC43 (PCR) Not Detected (NotDetected) Coronavirus HKU1 (PCR) Not Detected (NotDetected) Coronavirus 229E (PCR) Not Detected (NotDetected) SARS-CoV-2 (PCR) Not Detected (NotDetected) Coronavirus NL63 (PCR) Not Detected (NotDetected) Human Metapneumovir PCR Not Detected (NotDetected) Influenza Type A (PCR) Not Detected (NotDetected) Influenza Type B (PCR) Not Detected (NotDetected) M. pneumoniae (PCR) Not Detected (NotDetected) Parainfluenza 1 (PCR) Not Detected (NotDetected) Parainfluenza 2 (PCR) Not Detected (NotDetected) Parainfluenza 3 (PCR) Not Detected (NotDetected) Parainfluenza 4 (PCR) Not Detected (NotDetected) RSV (PCR) Not Detected (NotDetected) Entero/Rhino (PCR) Not Detected (NotDetected) Administered Medications Discontinued Medications Aspirin (Aspirin Chew 324 Mg) 324 mg PO NOW STA Stop: 12/18/23 18:02 Last Admin: 12/18/23 18:06 Dose: 324 mg Documented By: FRANCISCO Fentanyl Citrate (Fentanyl Citrate Pf 100 Mcg/2 Ml Vial) 50 mcg IV NOW STA Stop: 12/18/23 18:01 Last Admin: 12/18/23 18:07 Dose: 50 mcg Documented By: FRANCISCO Ioversol (Optiray 320 125ml) 117 ml IV ONCE ONE Stop: 12/18/23 19:43 Last Admin: 12/18/23 19:42 Dose: 117 ml Documented By: EVERTON Imaging Data Radiologist's Impression: Chest X-Ray 12/18/23 17:51 XR chest 1V portable CLINICAL HISTORY: Dyspnea TECHNIQUE: Single frontal radiograph of the chest was obtained. Comparison: Comparison is made to chest radiograph 12/07/2020 FINDINGS: No lines and tubes are seen. The cardiomediastinal silhouette is stable. Atelectasis is in the left lower lobe adjacent to a hiatal hernia. No evidence of pleural effusion or pneumothorax. IMPRESSION: No acute abnormality. Hiatal hernia and cardiomegaly. ACT 112: Negative or not required by law. Electronically signed by: Kd Chavarria M.D. 12/18/2023 6:07 PM Chest CTA 12/18/23 19:06 CR Exam(s): CTA CHEST EXAM: CT Angiography Chest With Intravenous Contrast CLINICAL HISTORY: Evaluate for PE. TECHNIQUE: Axial computed tomographic angiography images of the chest with intravenous contrast. CTDI is 26.81 mGy and DLP is 785.28 mGy-cm. Automated exposure control was utilized for the study. A dose lowering technique was utilized adhering to the principles of ALARA. MIP reconstructed images were created and reviewed. CONTRAST: 120 mL Optiray 320 COMPARISON: No relevant prior studies available. FINDINGS: Pulmonary arteries: Subtle asymmetric unenhanced subsegmental pulmonary artery branches serving the posterior medial right lower lobe (series 401; images 69-78 and series 402; image 38). The remaining pulmonary artery segments are intact, accounting for limitations with mild respiratory artifact. Aorta: The thoracic aorta is normal in caliber without dissection or aneurysm. Lungs: Curvilinear changes noted at the lung bases with more prominent changes noted in the medial left lung base adjacent to the hiatal hernia. No focal consolidation. Minimal asymmetric bronchial thickening involving the right lower lobe. Pleural space: Unremarkable. No significant effusion. No pneumothorax. Heart: Cardiac chambers are mildly prominent. The RV/LV ratio is 1.09. No pericardial effusion. Mild coronary artery calcification. Mediastinum: There is a large hiatal hernia containing the fundus and proximal to mid body of the stomach. The herniated gastric segment demonstrates mild to moderate distention with retained oral contents and fluid. No evidence for esophageal obstruction or gastric mucosal thickening. Bones/joints: No acute fracture. No dislocation. Soft tissues: No significant overlying soft tissue abnormality, where included. Lymph nodes: Unremarkable. No enlarged lymph nodes. IMPRESSION: 1. Subtle asymmetric unenhanced subsegmental pulmonary artery branches serving the posterior medial right lower lobe (series 401; images 69-78 and series 402; image 38). Findings are most consistent with distal subsegmental pulmonary artery embolism serving the subsegmental branch of the right lower lobe (at least fifth order branching). The RV/LV ratio is 1.09. Mild right heart strain is not excluded. 2. There is a large hiatal hernia containing the fundus and proximal to mid body of the stomach. The herniated gastric segment demonstrates mild to moderate distention with retained oral contents and fluid. No evidence for esophageal obstruction or gastric mucosal thickening. 3. There is compressive subsegmental changes involving the left lower lobe adjacent to the hernia. No focal consolidation. Minimal asymmetric bronchial thickening involving the right lower lobe. The clinical significance of this finding is indeterminant. No pleural effusion or pneumothorax. Communications: Call Doctor Pulmonary Embolism Electronically signed by: Trae Hickey MD 12/18/23 20:22 PM Discharge Plan Visit Data Chief Complaint: Shortness of Breath/Dyspnea Stated Complaint: SHORT OF BREATH, CHEST PAIN, ASTHMA ATTACK? ED Provider: Adina Jane Discharge Problem: Chest pain, Pulmonary embolism, Acute dyspnea Forms Stand Alone Forms: My [facility] Prescriptions Prescriptions: No Action finasteride 5 mg tablet 5 mg PO QAM tamsulosin 0.4 mg capsule 0.8 mg PO DAILY primidone 50 mg tablet 200 mg PO TID 90 Days Qty: 1080 3RF famotidine 20 mg tablet 20 mg PO HS pantoprazole [Protonix] 40 mg Tablet,Delayed Release (Dr/Ec) 40 mg PO QAM albuterol sulfate 90 mcg/actuation Hfa Aerosol Inhaler 1 inh INHALATION QID PRN (Reason: SHORT OF BREATH) atorvastatin 20 mg tablet 20 mg PO DAILY Referrals Referrals: Jett Kent MD [Primary Care Provider] -
[2023-12-18] MEDS: ASPIRIN CHEW 324 MG PO STA (18:06)
[2023-12-18] MEDS: fentaNYL citrate PF 100 MCG/2 ML VIAL IV STA (18:07)
--- NOTE | 2023-12-18 18:08 | XRay Report ---
XR chest 1V portable CLINICAL HISTORY: Dyspnea TECHNIQUE: Single frontal radiograph of the chest was obtained. Comparison: Comparison is made to chest radiograph 12/07/2020 FINDINGS: No lines and tubes are seen. The cardiomediastinal silhouette is stable. Atelectasis is in the left l ower lobe adjacent to a hiatal hernia. No evidence of pleural effusion or pneumothorax. IMPRESSION: No acute abnormality. Hiatal hernia and cardiomegaly. ACT 112: Negative or not required by law. Electronically signed by: Kd Chavarria M.D. 12/18/2023 6:07 PM
[2023-12-18 18:19] LABS: Basophils # (auto) 0.09 K/uL (0.00-0.20); Basophils % (auto) 1.6 %; Eosinophils # (auto) 0.27 K/uL (0.00-0.50); Eosinophils % (auto) 4.7 %; Hemoglobin 11.8 g/dl (14.0-18.0); Immature Granulocytes # (auto) 0.01 K/uL (0.01-0.20); Immature Granulocytes % (auto) 0.2 %; Lymphocytes # (auto) 1.55 K/uL (1.20-3.40); Mean Corpuscular Hemoglobin 26.6 pg (25.0-34.0); Mean Corpuscular Hgb Conc 31.9 g/dL (32.0-36.0); Mean Corpuscular Volume 83.5 fL (80.0-100.0); Mean Platelet Volume 9.5 fL (9.4-12.4); Monocytes # (auto) 0.43 K/uL (0.11-0.59); Monocytes % (auto) 7.5 %; Platelet Count 292 K/uL (130-400); RDW Coefficient of Variation 15.3 % (11.5-14.5); RDW Standard Deviation 46.5 fL (36.4-46.3); Red Blood Count 4.43 M/uL (4.70-6.10); White Blood Count 5.75 K/ul (4.8-10.8)
[2023-12-18 18:41] LABS: Albumin Globulin Ratio 1.5 (0.9-2); Albumin Level 4.3 gm/dl (3.4-5.0); Bilirubin,Total 0.2 mg/dl (0.2-1.0); Calcium 8.8 mg/dl (8.6-10.3); Creatinine Clr Calc Pharmacy 57.7 ml/min; Est GFR (African American) 57.6 ml/min; Est GFR (Non-African American) 49.7 ml/min; Globulin 2.8 gm/dl (2.5-4.0); Potassium 4.4 mmol/L (3.5-5.1); Total Protein 7.1 gm/dl (6.0-8.3)
[2023-12-18 18:42] LABS: Prothrombin Time 10.7 Seconds (9.0-12.0)
[2023-12-18 18:48] LABS: Troponin I High Sensitivity 3.8 pg/ml (0-20)
[2023-12-18 18:52] LABS: Base Excess VBG -0.7 mEq/L; HCO3 VBG 23 mmol/L; Oxygen Saturation VBG 74.3 %; PCO2 VBG 36 mmHg (38-50); PO2 VBG 41 mmHg; pH VBG 7.42 (7.36-7.41)
[2023-12-18 19:31] LABS: Adenovirus PCR Not Detected (NotDetected); Bordetella parapertussis PCR Not Detected (NotDetected); Bordetella pertussis PCR Not Detected (NotDetected); Chlamydia pneumoniae PCR Not Detected (NotDetected); Coronavirus 229E PCR Not Detected (NotDetected); Coronavirus CoV-2 (COVID19)PCR Not Detected (NotDetected); Coronavirus HKU1 PCR Not Detected (NotDetected); Coronavirus NL63 PCR Not Detected (NotDetected); Coronavirus OC43PCR Not Detected (NotDetected); Human Metapneumovirus PCR Not Detected (NotDetected); Influenza A PCR Not Detected (NotDetected); Influenza B PCR Not Detected (NotDetected); Mycoplasma pneumoniae PCR Not Detected (NotDetected); Parainfluenza Virus 1 PCR Not Detected (NotDetected); Parainfluenza Virus 2 PCR Not Detected (NotDetected); Parainfluenza Virus 3 PCR Not Detected (NotDetected); Parainfluenza Virus 4 PCR Not Detected (NotDetected); Respiratory Syncytial VirusPCR Not Detected (NotDetected); Rhinovirus/Enterovirus PCR Not Detected (NotDetected)
[2023-12-18] MEDS: OPTIRAY 320 125ml IV ONE (19:42)
--- NOTE | 2023-12-18 20:23 | CT Scan Report ---
Exam(s): CTA CHEST EXAM: CT Angiography Chest With Intravenous Contrast CLINICAL HISTORY: Evaluate for PE. TECHNIQUE: Axial computed tomographic angiography images of the chest with intravenous contrast. CTDI is 26.81 mGy and DLP is 785.28 mGy-cm. Automated exposure control was utilized for the study. A dose lowering technique was utilized adhering to the principles of ALARA. MIP reconstructed images were created and reviewed. CONTRAST: 120 mL Optiray 320 COMPARISON: No relevant prior studies available. FINDINGS: Pulmonary arteries: Subtle asymmetric unenhanced subsegmental pulmonary artery branches serving the posterior medial right lower lobe (series 401; images 69-78 and series 402; image 38). The remaining pulmonary artery segments are intact, accounting for limitations with mild respiratory artifact. Aorta: The thoracic aorta is normal in caliber without dissection or aneurysm. Lungs: Curvilinear changes noted at the lung bases with more prominent changes noted in the medial left lung base adjacent to the hiatal hernia. No focal consolidation. Minimal asymmetric bronchial thickening involving the right lower lobe. Pleural space: Unremarkable. No significant effusion. No pneumothorax. Heart: Cardiac chambers are mildly prominent. The RV/LV ratio is 1.09. No pericardial effusion. Mild coronary artery calcification. Mediastinum: There is a large hiatal hernia containing the fundus and proximal to mid body of the stomach. The herniated gastric segment demonstrates mild to moderate distention with retained oral contents and fluid. No evidence for esophageal obstruction or gastric mucosal thickening. Bones/joints: No acute fracture. No dislocation. Soft tissues: No significant overlying soft tissue abnormality, where included. Lymph nodes: Unremarkable. No enlarged lymph nodes. IMPRESSION: 1. Subtle asymmetric unenhanced subsegmental pulmonary artery branches serving the posterior medial right lower lobe (series 401; images 69-78 and series 402; image 38). Findings are most consistent with distal subsegmental pulmonary artery embolism serving the subsegmental branch of the right lower lobe (at least fifth order branching). The RV/LV ratio is 1.09. Mild right heart strain is not excluded. 2. There is a large hiatal hernia containing the fundus and proximal to mid body of the stomach. The herniated gastric segment demonstrates mild to moderate distention with retained oral contents and fluid. No evidence for esophageal obstruction or gastric mucosal thickening. 3. There is compressive subsegmental changes involving the left lower lobe adjacent to the hernia. No focal consolidation. Minimal asymmetric bronchial thickening involving the right lower lobe. The clinical significance of this finding is indeterminant. No pleural effusion or pneumothorax. Communications: Call Doctor Pulmonary Embolism Electronically signed by: Trae Hickey MD 12/18/23 20:22 PM
--- NOTE | 2023-12-18 20:38 | History & Physical Report ---
Date of Service December 18, 2023 Assessment & Plan (1) Pulmonary embolism: Plan: Worsening, intermittent SOB at rest and chest pressure since Wednesday 12/13, with an acute exacerbation on 12/17 No leukocytosis; afebrile; normotensive Biofire negative Troponin WNL x 2 Chest CTA on arrival revealed distal subsegmental pulmonary artery embolism, as well as right heart strain (pain which radiologist reports the ED is unusual for given that PE is located); no aortic dissection or aneurysm Echocardiogram ordered, pending CTA also noted a large hiatal hernia, which patient reports is not new Unclear etiology; no hx of DVT/PE; unprovoked Heparin IV standard dose w/ bolus; platelets WNL No hx of bleeding disorders or GI bleeds Continuous pulse oximetry Supplemental oxygen as needed to maintain SpO2 >94% AM CBC, BMP, Troponin (2) Hiatal hernia: Plan: Unclear if contributing to chest pressure (3) Essential tremor: Plan: Continue primidone (4) Anemia: Plan: Mild; Hgb 11.8 on arrival No signs of active bleeding on clinical exam (patient denies hemoptysis, melena, or BRB in urinary or stool) Follow AM CBC (5) Asthma: Plan Disposition: Admit to PCU telemetry Full code Regular Diet VTE PPx: Heparin IV standard dose w/ bolus History of Present Illness Chief Complaint: SOB/Dyspnea Primary Care Provider: Jett Kent MD Lalit is a 63-year-old male with PMH of GERD, asthma, chronic rhinitis, incarcerated hernia s/p hernia repair, and essential tremor. He presented for worsening chest pressure and SOB started on Wednesday 12/13. Chest pressure is located across his lower transverse chest/epigastric region bilaterally. No radiation to the back, lower stomach, or shoulder/arm. His symptoms wax and wane intermittently.. He has had no prior experiences like this one.. He does have a history of asthma, and asthma attacks, but this does not feel like previous episodes. Patient has also been taking his albuterol inhaler this week without relief. He took ibuprofen earlier today, further chest pressure as he thought it might be inflammation.. He also reports that he took all his regular morning medications; no recent change in medications. His shortness of breath is both at rest and with exertion; may also be worse when he lays down flat on his back. Standing up and walking sometimes makes the pain better.. No recent change in diet. The chest pressure and breathing is not better or worse after eating. No PMH of DVT/PE. No recent injuries to the chest wall or legs. Patient denies history of bleeding disorders or GI bleeds. He is not currently on anticoagulation. No supplemental oxygen at home. No CPAP at night. No sick contact. Patient denies smoking, tobacco use, and consistent alcohol use; reports that he did have a martini on Friday 12/15. History of incarcerated abdominal hernia around 5 years ago. Patient vitals are stable at time admission; SpO2 96-98% on RA. ED Course: Fentanyl 50 mcg IV Aspirin 324 mg p.o. Pantoprazole 40 mg IV ROS: Patient endorses chest pressure across the lower chest, SOB at rest and with exertion, discomfort with deep breaths (mild pleuritic CP), and fatigue. Patient denies fever, chills, nightsweats, dizziness, lightheadedness, GILBERT, rashes, tick bites, cough, hemoptysis, abdominal pain, N/V/D, changes in urinary/bowel habits, blood in urine/stool, dark tarry stool, or numbness/tingling/swelling/pain in arms or legs. Allergies Allergy/AdvReac Type Severity Reaction Status Date / Time cat dander Allergy Intermediate SNEEZING Verified 12/18/23 20:35 house dust mite Allergy Intermediate Sneezing Verified 12/18/23 20:35 pollen extracts Allergy Intermediate SNEEZING Verified 12/18/23 20:35 Home Medications Medication Instructions Recorded Confirmed Type finasteride 5 mg tablet 5 mg PO QAM 03/18/19 12/18/23 History tamsulosin 0.4 mg capsule 0.8 mg PO DAILY 03/18/19 12/18/23 History albuterol sulfate 90 mcg/actuation 1 inh inhalation QID PRN SHORT OF 06/02/20 12/18/23 History aerosol inhaler BREATH pantoprazole 40 mg tablet,delayed 40 mg PO QAM 06/02/20 12/18/23 History release (Protonix) famotidine 20 mg tablet 20 mg PO HS 07/19/21 12/18/23 History primidone 50 mg tablet 200 mg (4 x 50 mg) PO TID 90 days 01/17/23 12/18/23 Rx #1,080 tabs atorvastatin 20 mg tablet 20 mg PO DAILY 12/18/23 12/18/23 History Past Med/Surg History Problem List (Updated 12/18/23 @ 21:44 by David Leblanc PA-C) Anemia Hiatal hernia Pulmonary embolism Impacted cerumen of both ears Palpitation Chest pain Dyspnea on exertion Encounter for pre-operative examination GERD (gastroesophageal reflux disease) (Chronic) Asthma (Chronic) Essential tremor (Chronic) Throat irritation Chronic rhinitis Nasal polyposis Antrochoanal polyp Acquired deviated nasal septum Medical History Asthma Asthma BPH (benign prostatic hyperplasia) GERD (gastroesophageal reflux disease) History of depression History of gastroesophageal reflux (GERD) Hyperlipidemia Temporomandibular joint disorder Tremor Surgical History History of colonoscopy History of surgery on arm Hx of LASIK Hx of vasectomy S/P hernia repair Family History Mother Coronary heart disease Hyperlipidemia Breast cancer Parkinson disease Uncle Coronary heart disease Other No family history of adverse response to anesthesia Social History Smoking Status: Never smoker Tobacco Type: Cigars Cigarettes Per Day: WILL HAVE OCCAS. CIGAR; Second Hand Exposure: Yes ( A CHILD); Do You Dip or Chew Tobacco: No; Hx Alcohol Use: Yes Alcohol type: beer Hx Substance Use: No Preferred Language: Ukrainian Communication Ability: Effective Leather Cleaner Required: No Beliefs That Will Affect Care: None Current Living Situation: Alone Feels Safe at Home: Yes Assistive Devices: None Review of Systems Review of Systems: See HPI above Physical Exam Physical Exam: General: Moderate physical distress secondary to chest pressure; anxious; non- toxic appearing; well-nourished; cooperative; SpO2 96% on RA HEENT: normocephalic, atraumatic; no scleral icterus; PERRLA; moist mucus membrane; vision and hearing grossly intact Neck: supple; no lymphadenopathy; trachea midline Skin: warm, dry without signs of tenting; no cyanosis; no rashes, bruising, lesions, or erythema noted CV: chest wall NTP; RRR; S1/S2 normal; no murmurs/rubs/gallops; pulses intact and symmetric at radial, DP, and PT Lungs: no acute respiratory distress; symmetrical chest wall expansion; clear breath sounds across all lung stacy w/o adventitious sounds; no wheezing ABD: Soft, NTP; BS present; no rebound/guarding; no distention MSK: no tics or fasciculations; no edema noted in the LEs b/l, nonerythematous, nontender to palpation Neuro: A&Ox3; normal mood and affect; fluent speech; no focal deficits; se nsation grossly intact in the LEs b/l Results & Data Results & Data Vital Signs (Past 12 Hours) Vital Signs Temp Pulse Pulse Resp BP BP Pulse Ox 12/18/23 19:10 75 17 119/77 96 12/18/23 18:30 79 12 95 12/18/23 18:30 137/78 12/18/23 18:20 80 12 95 12/18/23 18:10 83 13 96 12/18/23 18:09 138/76 12/18/23 18:09 81 17 96 12/18/23 18:03 87 19 97 12/18/23 18:00 124/75 12/18/23 18:00 87 14 97 12/18/23 17:50 90 12/18/23 17:50 91 H 16 97 12/18/23 17:49 92 H 20 98 12/18/23 17:49 90 18 158/87 H 98 12/18/23 17:49 98 12/18/23 17:39 36.7 C 106 H 18 140/81 96 O2 Del Method 12/18/23 19:10 Room Air 12/18/23 18:30 12/18/23 18:30 12/18/23 18:20 12/18/23 18:10 12/18/23 18:09 12/18/23 18:09 12/18/23 18:03 Room Air 12/18/23 18:00 12/18/23 18:00 12/18/23 17:50 12/18/23 17:50 12/18/23 17:49 12/18/23 17:49 Room Air 12/18/23 17:49 Room Air 12/18/23 17:39 Room Air Laboratory Results Abnormal lab results 12/18/23 12/18/23 Range/Units 17:51 18:40 RBC 4.43 L (4.70-6.10) M/uL Hgb 11.8 L (14.0-18.0) g/dl Hct 37.0 L (42.0-52.0) % MCHC 31.9 L (32.0-36.0) g/dL RDW Std Deviation 46.5 H (36.4-46.3) fL RDW Coeff of Sunshine 15.3 H (11.5-14.5) % VBG pH 7.42 H (7.36-7.41) VBG pCO2 36 L (38-50) mmHg Creatinine 1.47 H (0.6-1.4) mg/dl Glucose 176 H (70-99(Fasting)) mg/dl Diagnostic Findings Chest X-Ray 12/18/23 17:51 XR chest 1V portable CLINICAL HISTORY: Dyspnea TECHNIQUE: Single frontal radiograph of the chest was obtained. Comparison: Comparison is made to chest radiograph 12/07/2020 FINDINGS: No lines and tubes are seen. The cardiomediastinal silhouette is stable. Atelectasis is in the left lower lobe adjacent to a hiatal hernia. No evidence of pleural effusion or pneumothorax. IMPRESSION: No acute abnormality. Hiatal hernia and cardiomegaly. ACT 112: Negative or not required by law. Electronically signed by: Kd Chavarria M.D. 12/18/2023 6:07 PM Chest CTA 12/18/23 19:06 CR Exam(s): CTA CHEST EXAM: CT Angiography Chest With Intravenous Contrast CLINICAL HISTORY: Evaluate for PE. TECHNIQUE: Axial computed tomographic angiography images of the chest with intravenous contrast. CTDI is 26.81 mGy and DLP is 785.28 mGy-cm. Automated exposure control was utilized for the study. A dose lowering technique was utilized adhering to the principles of ALARA. MIP reconstructed images were created and reviewed. CONTRAST: 120 mL Optiray 320 COMPARISON: No relevant prior studies available. FINDINGS: Pulmonary arteries: Subtle asymmetric unenhanced subsegmental pulmonary artery branches serving the posterior medial right lower lobe (series 401; images 69-78 and series 402; image 38). The remaining pulmonary artery segments are intact, accounting for limitations with mild respiratory artifact. Aorta: The thoracic aorta is normal in caliber without dissection or aneurysm. Lungs: Curvilinear changes noted at the lung bases with more prominent changes noted in the medial left lung base adjacent to the hiatal hernia. No focal consolidation. Minimal asymmetric bronchial thickening involving the right lower lobe. Pleural space: Unremarkable. No significant effusion. No pneumothorax. Heart: Cardiac chambers are mildly prominent. The RV/LV ratio is 1.09. No pericardial effusion. Mild coronary artery calcification. Mediastinum: There is a large hiatal hernia containing the fundus and proximal to mid body of the stomach. The herniated gastric segment demonstrates mild to moderate distention with retained oral contents and fluid. No evidence for esophageal obstruction or gastric mucosal thickening. Bones/joints: No acute fracture. No dislocation. Soft tissues: No significant overlying soft tissue abnormality, where included. Lymph nodes: Unremarkable. No enlarged lymph nodes. IMPRESSION: 1. Subtle asymmetric unenhanced subsegmental pulmonary artery branches serving the posterior medial right lower lobe (series 401; images 69-78 and series 402; image 38). Findings are most consistent with distal subsegmental pulmonary artery embolism serving the subsegmental branch of the right lower lobe (at least fifth order branching). The RV/LV ratio is 1.09. Mild right heart strain is not excluded. 2. There is a large hiatal hernia containing the fundus and proximal to mid body of the stomach. The herniated gastric segment demonstrates mild to moderate distention with retained oral contents and fluid. No evidence for esophageal obstruction or gastric mucosal thickening. 3. There is compressive subsegmental changes involving the left lower lobe adjacent to the hernia. No focal consolidation. Minimal asymmetric bronchial thickening involving the right lower lobe. The clinical significance of this finding is indeterminant. No pleural effusion or pneumothorax. Communications: Call Doctor Pulmonary Embolism Electronically signed by: Trae Hickey MD 12/18/23 20:22 PM ECG Additional Comments: ECG revealed NSR at 92 bpm; QTc 417 Code Status & VTE Plan Code Status Full code VTE Prophylaxis Plan VTE Prophylaxis will be ordered: Yes Supervising Physician Co-Signing Physician Notes Patient seen and examined, chart reviewed, case discussed with LULY Leblanc and I agree with the assessment and plan as above. Unprovoked PE, no history of prior, no family history HD stable. Adequate oxygenation on room air. Still with some substernal chest discomfort and SOB - unclear if this is from PE vs Asthma vs hiatal hernia/GERD Exam is unremarkable No evidence of DVT labs and images reviewed Assessment/Plan PE - heparin drip --> NOAC. Will need 3-6 months of anticoagulation for first episode of VTE/PE. Remainder as above PG Care Time/CCT Total # of Minutes Spent Total Time Spent with Patient: Total time spent is greater than 50% in coordination of care (as documented) at patient's floor/unit and/or counseling patient: [place] [address] INT INP/OBS CARE 3/75MIN Patient Type New Medical Decision Making High Complexity Diagnoses Pulmonary embolism I26.99 Hiatal hernia K44.9 Essential tremor G25.0 Anemia D64.9 Asthma J45.909
[2023-12-18] MEDS ORDERED: Heparin IV Adult Wt-Based Standard w/ INITIAL Bolus Protocol IV SCH (21:45)
[2023-12-18 21:46] LABS: Partial Thromboplastin Ratio 0.9; Partial Thromboplastin Time 23 Seconds (21-31)
[2023-12-18] MEDS: HEPARIN SOD (PORCINE) 1000 UNIT/ML IV ONE (22:00)
[2023-12-18] MEDS: HEPARIN SODIUM/DEXTROSE 25,000 UNITS/500 ML BAG IV SCH (22:01)
[2023-12-18] MEDS: PANTOprazole 40 MG in SYRINGE 0 ML IV ONE (23:41)
[2023-12-19 02:45] LABS: Appearance Urine Clear (Clear); Bacteria Urine Automated None Seen (None Seen); Bilirubin Urine Negative (Negative); Blood Urine Negative (Negative); Color Urine Yellow; Glucose Urine UA Negative (Negative); Ketones Urine Negative (Negative); Leukocyte Esterase Urine 2+ (Negative); Nitrite Urine Negative (Negative); Protein Urine Negative (Negative); RBC Urine Automated 0-2 /hpf (0-2); Specific Gravity Urine > 1.045 (1.000-1.030); Urobilinogen Urine Negative (Negative); WBC Urine Automated >50 /hpf (0-5); pH Urine 5.5 (4.5-7.5)
[2023-12-19 04:22] LABS: Basophils % (auto) 1.3 %; Eosinophils # (auto) 0.41 K/uL (0.00-0.50); Eosinophils % (auto) 5.5 %; Hematocrit (blood only) 32.4 % (42.0-52.0); Hemoglobin 10.3 g/dl (14.0-18.0); Immature Granulocytes # (auto) 0.02 K/uL (0.01-0.20); Immature Granulocytes % (auto) 0.3 %; Lymphocytes # (auto) 2.95 K/uL (1.20-3.40); Lymphocytes % (auto) 39.8 %; Mean Corpuscular Hemoglobin 26.4 pg (25.0-34.0); Mean Corpuscular Hgb Conc 31.8 g/dL (32.0-36.0); Mean Corpuscular Volume 83.1 fL (80.0-100.0); Mean Platelet Volume 9.5 fL (9.4-12.4); Monocytes # (auto) 0.57 K/uL (0.11-0.59); Monocytes % (auto) 7.7 %; Neutrophils # (auto) 3.36 K/uL (1.40-6.50); Neutrophils % (auto) 45.4 %; Platelet Count 253 K/uL (130-400); RDW Coefficient of Variation 15.4 % (11.5-14.5); RDW Standard Deviation 46.8 fL (36.4-46.3); White Blood Count 7.41 K/ul (4.8-10.8)
[2023-12-19 04:38] LABS: BUN Creatinine Ratio 17.1 (10-20); Calcium 8.3 mg/dl (8.6-10.3); Creatinine Clr Calc Pharmacy 63.3 ml/min; Est GFR (African American) 80.9 ml/min; Est GFR (Non-African American) 69.8 ml/min
[2023-12-19 04:45] LABS: Troponin I High Sensitivity 3.9 pg/ml (0-20)
[2023-12-19 05:00] LABS: ANTI-Xa, UFH(UnfractionatedHep 1.25 IU/ml (0.3-0.7)
[2023-12-19] MEDS: TAMSULOSIN HCL 0.4 MG CAP PO SCH (08:18)
[2023-12-19] MEDS: PRIMIDONE 50 MG TAB PO SCH (08:18)
[2023-12-19] MEDS: PANTOprazole 40 MG TAB PO SCH (08:19)
[2023-12-19] MEDS: FINASTERIDE 5 MG TAB PO SCH (08:19)
[2023-12-19] MEDS: ATORVASTATIN 20 MG TAB PO SCH (08:19)
[2023-12-19 10:30] LABS: ANTI-Xa, UFH(UnfractionatedHep 0.15 IU/ml (0.3-0.7)
--- NOTE | 2023-12-19 11:23 | Hospitalist Progress Note ---
Date of Service December 19, 2023 Assessment & Plan (1) Pulmonary embolism: Plan: Patient presents to the hospital worsening shortness of breath and chest pressure. Found to have unprovoked PE on CT angiogram No personal or family history of blood clots. 2D echo has been done, result pending Started on IV heparin, will continue for now. Will order relevant hypercoagulation study Still complaining of some shortness of breath and chest discomfort this morning (2) Hiatal hernia: Plan: Unclear if contributing to chest pressure (3) Essential tremor: Plan: Continue primidone (4) Anemia: Plan: Mild; Hgb 11.8 on arrival No signs of active bleeding on clinical exam (patient denies hemoptysis, melena, or BRB in urinary or stool) Follow AM CBC (5) Asthma: Plan Disposition: Continue to monitor, transition to oral anticoagulation tomorrow Full code Regular Diet VTE PPx: Heparin IV standard dose w/ bolus Admission and Anticipated Discharge Date Admission Date: December 18, 2023 Subjective Patient seen and examined, sitting at the edge of the bed, still has some shortness of breath and mild chest discomfort Review of Systems Review of Systems: All systems reviewed are negative, apart from the ones contained in the history. Physical Exam Physical Exam: The patient is awake, alert and oriented 3, well developed and well nourished, normocephalic and atraumatic, lying in bed and in no acute distress. HEENT--PERRL, EOMI, mucous membranes and oropharynx mildly dry Neck--supple. No JVD. No bruits. Thyroid normal, trachea midline, no adenopathy. Heart--normal S1 and S2. No murmurs, rubs or gallops. Lungs--clear bilaterally, no respiratory distress, no accessory muscle use. Abdomen--normal bowel sounds and soft. Extremities--no cyanosis or clubbing. No edema. Dermatologic--normal skin turgor, normal color, no abnormal lymph nodes, no rash. Neurologic--cranial nerves II through XII grossly intact. Rheumatologic--normal range of motion. Psychiatric--normal affect. Results & Data Results & Data Vital Signs (Past 12 Hours) Vital Signs Pulse Pulse Resp BP BP Pulse Ox Pulse Ox 12/19/23 10:16 78 16 117/84 93 12/19/23 08:00 68 18 100/75 98 12/19/23 07:02 58 L 12/19/23 06:40 67 18 106/71 12/19/23 05:01 66 14 96 12/19/23 04:00 60 14 97 12/19/23 03:00 64 16 98 12/19/23 00:38 61 19 130/77 98 12/19/23 00:38 98 O2 Del Method O2 Del Method 12/19/23 10:16 Room Air 12/19/23 08:00 Room Air 12/19/23 07:02 12/19/23 06:40 12/19/23 05:01 Room Air 12/19/23 04:00 Room Air 12/19/23 03:00 Room Air 12/19/23 00:38 Room Air 12/19/23 00:38 Room Air PG Care Time/CCT Total # of Minutes Spent Total Time Spent with Patient: Total time spent is greater than 50% in coordination of care (as documented) at patient's floor/unit and/or counseling patient: Coding Level of Care Code 29684 SUB INP/OBS CARE 2/35MIN Diagnoses Pulmonary embolism I26.99 Hiatal hernia K44.9 Essential tremor G25.0 Anemia D64.9 Asthma J45.909 Time Spent (min) 35
[2023-12-19] MEDS: ACETAMINOPHEN 325 MG TAB PO PRN (12:39)
[2023-12-19 12:58] LABS: ANTI-Xa, UFH(UnfractionatedHep 0.16 IU/ml (0.3-0.7)
--- NOTE | 2023-12-19 15:01 | XCELERA ---
[id number]
--- NOTE | 2023-12-19 16:28 | Electrocardiogram Report ---
Test Reason : Blood Pressure : / mmHG Vent. Rate : 092 BPM Atrial Rate : 092 BPM P-R Int : 124 ms QRS Dur : 080 ms QT Int : 338 ms P-R-T Axes : 046 035 066 degrees QTc Int : 417 ms Normal sinus rhythm Nonspecific ST abnormality Abnormal ECG When compared with ECG of 04-JUN-2020 04:01, No significant change was found Confirmed by Reginaldo Lopez ([id number]) on 12/19/2023 4:27:54 PM Referred By: REFERRED SELF Confirmed By:Reginaldo Lopez
--- NOTE | 2023-12-19 16:43 | Electrocardiogram Report ---
Test Reason : Blood Pressure : / mmHG Vent. Rate : 073 BPM Atrial Rate : 073 BPM P-R Int : 148 ms QRS Dur : 080 ms QT Int : 402 ms P-R-T Axes : 046 046 037 degrees QTc Int : 442 ms Normal sinus rhythm Normal ECG When compared with ECG of 18-DEC-2023 17:48, (unconfirmed) No significant change was found Confirmed by Reginaldo Lopez ([id number]) on 12/19/2023 4:42:56 PM Referred By: REFERRED SELF Confirmed By:Reginaldo Lopez
--- OUTSIDE RECORDS SUMMARY | 2023-12-19 19:09 | External Medical Summary | Continuity of Care Document ---
Author Name Unknown Organization [facility] [address] [place] [address] CHANTELLE WILLETT [id number] Care Team Providers Care Public Health Specialist Name Role Phone Jett Kent Primary Care Physician [phone] [id number] Date(s): 08/15/23 - 08/15/23 [facility] Otolaryngology - Head and Neck Surgery [address], [address], [address] [place] [address] [phone] Encounter Diagnosis Bilateral sensorineural hearing loss(Discharge Diagnosis) - 08/15/23 Body mass index [BMI] 28.0-28.9, adult(Discharge Diagnosis) - 08/15/23 ETD (eustachian tube dysfunction)(Discharge Diagnosis) - 08/15/23 Discharge Disposition: Home or Self Care Attending Physician: LULY Mcclure Caitlin E Referring Physician: MD Kent Edward R Allergies, Adverse Reactions, Alerts Substance Reaction Severity Status Pollen SNEEZING Active NSAIDS (nonsteroidal anti-inflammatory agents) GI dist ress Active Allergy Not found in Search 1 Epistaxis Active 1Nasal Steroids Assessment and Plan Extracted from: Title:Office Visit Note Author:LULY Mcclure Cait lin E Date:08/15/23 1.Bilateral sensorineural hearing loss Lalit is a 62-year-old gentleman with eustachian tube dysfunction and bilateral sensorineural hearing loss. Reviewed his audiogram with him today. He does have objective improvement and tonal testingwith the closing of the conductive gap. He does have an asymmetric sensorineural hearing loss on testing today with flat tympanogram. I do not appreciate any obvious effusion on exam. I did discuss with patient options to includemyringotomy and tube placement or continue medical management as he is having some improvement. I also offered him diagnostic myringotomy. We discussed the risksand benefits to each. He has opted to continue Flonase. I will see him back in 6 to 8 weeks and if continued symptoms will again present options for myringotomy and tube placement. He states understanding. 2.ETD (eustachian tube dysfunction) Immunizations Given and Recorded Vaccine Date Status Refusal Reason influenza virus vaccine, inactivated 05/17/23 Give n influenza virus vaccine, inactivated 06/27/21 Give n influenza virus vaccine, inactivated 04/30/20 Give n influenza virus vaccine, inactivated 06/19/19 Give n influenza virus vaccine, inactivated 06/11/18 Give n influenza virus vaccine, inactivated 04/24/14 Reynaldo rded influenza virus vaccine, inactivated 05/03/13 Reynaldo rded influenza virus vaccine, inactivated 04/20/12 Reynaldo rded influenza virus vaccine, inactivated 05/30/11 Reynaldo rded influenza virus vaccine, inactivated 04/29/09 Reynaldo rded influenza virus vaccine, inactivated 05/30/08 Reynaldo rded influenza virus vaccine, inactivated 06/11/07 Reynaldo rded zoster vaccine, inactivated 09/09/20 Given zoster vaccine, inactivated 1 03/25/20 Given tetanus/diphtheria/pertuss, acel (Tdap) 08/16/09 R ecorded tetanus toxoids-diphtheria, Td (Adult) 04/29/01 Re corded tetanus toxoids-diphtheria, Td (Adult) 05/30/99 Re corded 1Result Comment: [id number] 04/08/2022 Medications atorvastatin 20 mg oral tablet Start: 10/10/22 12:59:00 EDT, 1 tab, PO, Daily, Disp# 90 tab, Refills: 3, [facility] Start Date: 10/10/22 Stop Date: 10/05/23 Status: Ordered famotidine 20 mg oral tablet Start: 06/19/19 9:49:00 EST, 1 tab, PO, qhs, Disp# 90 tab, Refills: 3 Start Date: 06/19/19 Stop Date: 09/17/19 Status: Ordered finasteride 5 mg oral tablet Start: 10/10/22 13:00:00 EDT, 1 tab, PO, Daily, Disp# 90 tab, X 90 day, Refills: 3, Stop: 10/05/23 13:00:00 EST, [facility]acy: [facility] Start Date: 10/10/22 Stop Date: 10/05/23 Status: Ordered pantoprazole 40 mg oral delayed release tablet Start: 10/10/22 13:02:00 EDT, 1 tab, PO, Daily, Disp# 90 tab, X 90 day, Refills: 3, 30 minutes prior to the same meal each day., Stop: 10/05/23 13:02:00 EST, Pharmacy: [facility] Start Date: 10/10/22 Stop Date: 10/05/23 Status: Ordered primidone 50 mg oral tablet Start: 06/27/21 12:25:00 EST, 1 tab, PO, bid Start Date: 06/27/21 Status: Ordered ProAir HFA 90 mcg/inh inhalation aerosol Start: 04/11/22 13:56:00 EDT, 2 puff, inhaled, qid, Disp# 3 each, Refills: 3, PRN: as needed for wheezing or shortness of breath., Pharmacy: [facility] Start Date: 04/11/22 Status: Ordered Sutab oral tablet Start: 03/05/23 7:10:00 EDT, See Instructions, Disp# 24 tab, Refills: 0, FOLLOW INSTRUCTIONS PROVIDED BY [facility], Pharmacy: [facility]/pharmacy #[id number] Start Date: 03/05/23 Status: Ordered tamsulosin 0.4 mg oral capsule Start: 04/03/23 8:16:00 EDT, 2 cap, PO, Daily, Disp# 180 cap, Refills: 3, 30 minutes after the samemeal, Pharmacy: [facility] Start Date: 04/03/23 Stop Date: 03/28/24 Status: Ordered triamcinolone 55 mcg/inh nasal spray Start: 06/14/23 13:56:00 EST, 2 spray, each nostril, Daily, Disp# 1 each, Refills: 1, Pharmacy: [facility]/pharmacy #[id number] Start Date: 06/14/23 Stop Date: 08/13/23 Status: Ordered Viagra 100 mg oral tablet Start: 04/11/22 13:40:00 EDT, 1 tab, PO, Daily, Disp# 10 tab, Refills: 2, PRN: as needed for erectile dysfunction Start Date: 04/11/22 Status: Ordered Mental Status 08/15/23 Barriers to Learning one year None evide nt Mandatory Health Literacy Documentation Yes Health Literacy Communication Barriers N ever Primary Language Turkish Problem List Condition Confirmation Course Effective Dates Status H ealth Status Informant Allergic rhinosinusitis Confirmed Active Anxiety disorder Confirmed Active Asthma, cough variant Confirmed Active Dysplastic nevus Confirmed Active ED (erectile dysfunction) 1 Confirmed Active GERD Confirmed Active Hyperlipidemia Confirmed Active BPH NOS w ur obs/LUTS Confirmed Active Panic attacks Confirmed Active Recurrent major depression Confirmed Active MDD (recurrent major depressive disorder) in remission Confirmed Active Social anxiety disorder Confirmed Active Tubular adenoma of colon Confirmed Active Vitamin D deficiency Confirmed Active Weight disorder Confirmed Active 1psychogenic Diagnosis Diagnosis Type Effective Dates Health Status Clinical Service Informant Bilateral sensorineural hearing loss Discharge Diagnosis 08/15/23 Body mass index [BMI] 28.0-28.9, adult Discharge Diagnosis 08/15/23 Non-Specified ETD (eustachian tube dysfunction) Discharge Diagnosis 08/15/23 Procedures Procedure Date Related Diagnosis Body Site Status Colonoscopy 1, 2, 3 03/28/23 Compl eted Pathology 4 03/28/23 Completed Colonoscopy 5, 6 09/07/20 Complete d Colonoscopy 7 07/03/17 Completed SBO (small bowel obstruction) 8 12/18/16 Completed Colonoscopy 9, 10 03/02/10 Complet ed Stress Echo 11 08/30/98 Completed Herniorrhaphy Completed Left Arm Fracture x2 Comp leted Left Scapular excisional biopsy Completed Radial keratotomy Complet ed 1- Repeat colonoscopy in 2 years. 2- One 6 mm polyp at the hepatic flexure, removed with a cold snare. Resected and retrieved. - Internal hemorrhoids. - The examination was otherwise normal on direct and retroflexion views - Await pathology 3Hepatic flexure polyp, polypectomy: Tubular adenoma. 4DIAGNOSIS: Hepatic flexure polyp, polypectomy: Tubular adenoma. 5Pathology results: 1) polyp, ascending colon, polypectomy: fragments of tubular adenoma. 2) Polyp transverse colon, polypectomy: fragment of polypoid colonic mucosa with focal superficial hyperplastic change. Negativ efor dysplasia. 3) Polyp, colon at 50 cm, polypectomy: fragments of tubular adenoma. Repeat in 2 years. 6COLO to cecum, 10 mm AC polyp hot snare, 2 mm TC polyp CF, 6 mm polyp at 50 cm cold snare, 7Adenomas - 3 year surveillance recommended. (2019) 8Incarcerated umbilical hernia 9Repeat in 5 yrs 10Pedunculated polyp @ the splenic flexure Sessille polyp @ the hepatic fflexure 11negative Vital Signs Most recent to oldest [Reference Range]: 1 Height 177.75 cm (08/15/23 12:34 PM) Patient Weight 91 kg (08/15/23 12:34 PM) Body Mass Index 28.8 kg/m2 (08/15/23 12:34 PM) Temperature [36.5-37.9 DegC] 36.5 DegC (08/15/23 12:34 PM) Heart Rate 72 bpm (08/15/23 12:34 PM) Respiratory Rate 18 br/min (08/15/23 12:34 PM) Blood Pressure 115/68mmHg (08/15/23 12:34 PM) Social History Social History Type Response Smoking Status Never smoked cigaret todd Sex Male Otolaryngology Outpt Note * LULY Mcclure, Jodie E: PERFORM Event Display: Otolaryngology Outpt Note Authored Date: Chief Complaint follow up, conductive hearing loss History of Present Illness Name:LALIT CAMPBELL Patient Number:[id number] :1960 Referring Provider:MD Kent Edward R Primary Care Physician:MD Kent Edward R Date of Service:08/15/2023 Lalit is a 62-year-old gentlemanwho presents today for consideration of right myringotomy and tube placement. He was seen in May for right-sided otitis media. He was found to haveaneffusion with conductive hearing loss on the right. He has hx of FESS bilateral frontal, maxillary, and ethmoidectomies with septoplasty on 06/10/[address] Calderon at [facility]. Per patienthe only had right nasal polyp removal.At that time, he had experienced similar symptoms following the surgery that then resolved. He was placed onNasacort nasal sinus irrigations. He notesno significant improvement. He does note that his right ear is cracking and popping but he cannot get it to completely open. He still reports muffled hearing on this side. Prior to April he hadno known hearing loss, ear fullness, tinnitusor ear pain. Review of Systems As per HPI Physical Exam Vitals & Measurements T:36.5C HR:72(Monitored) RR:18 BP:115/68 SpO2:96% HT:177.75cm WT:91kg WT:91.000kg(Dosing) BMI:28.8 PHQ2 Data(Data Documented on:08/15/2023 12:30) Emotional health assessment NEGATIVE General: pleasant, cooperative, in no distress. Eyes: no spontaneous nystagmus Ears: Right ear:Small amountsof cerumenjust insidethe meatusthat wasremoved withsuction.,Tympanic membrane is intact and healthy.No effusion.No retraction. Left ear:Ear canal patent and not inflamed,Tympanic membrane is intact and healthy.No effusion.No retraction. Voice: strong without hoarseness or stridor Facial nerve function is normal and symmetric. Audiogram: The hearing thresholds on the Right: Mild sloping to severe sensorineural hearing loss The hearing thresholds on the Left: Normal hearing sloping to moderately severe sensorineural hearing loss WRS: 100% on the Right. 100% on the Left. Tympanometry demonstrates: Right: Type B, Normal volume Left: Type A Assessment/Plan 1.Bilateral sensorineural hearing loss Lalit is a 62-year-old gentleman with eustachian tube dysfunction and bilateral sensorineural hearing loss. Reviewed his audiogram with him today. He does have objective improvement and tonal testingwith the closing of the conductive gap. He does have an asymmetric sensorineural hearing loss on testing today with flat tympanogram. I do not appreciate any obvious effusion on exam. I did discuss with patient options to includemyringotomy and tube placement or continue medical management as he is having some improvement. I also offered him diagnostic myringotomy. We discussedthe risksand benefits to each. He has opted to continue Flonase. I will see him back in 6 to 8 weeks and if continued symptoms will again present options for myringotomy and tube placement. He states understanding. 2.ETD (eustachian tube dysfunction) Problem List/Past Medical History Ongoing Allergic rhinosinusitis Anxiety disorder Asthma, cough variant BPH NOS w ur obs/LUTS Dysplastic nevus ED (erectile dysfunction) GERD Hyperlipidemia MDD (recurrent major depressive disorder) in remission Panic attacks Recurrent major depression Social anxiety disorder Tubular adenoma of colon Vitamin D deficiency Weight disorder Procedure/Surgical History Pathology (03/28/2023)Colonoscopy (03/28/2023)Colonoscopy (09/07/2020)Colonoscopy (07/03/2017)SBO (small bowel obstruction) (12/18/2016)Colonoscopy (03/02/2010)Stress Echo (08/30/1998)Left Scapular excisional biopsyLeft Arm Fracture [id number] keratotomy Medications albuterol(ProAir HFA 90 mcg/inh inhalation aerosol), 2 puff, inhaled, qid, PRN, 3 refills atorvastatin(atorvastatin 20 mg oral tablet), 20 mg= 1 tab, PO, Daily, 3 refills famotidine(famotidine 20 mg oral tablet), 20 mg= 1 tab, PO, qhs finasteride(finasteride 5 mg oral tablet), 5 mg= 1 tab, PO, Daily, 3 refills magnesium sulfate/potass Cl/sodium sulf(Sutab oral tablet), See Instructions pantoprazole(pantoprazole 40 mg oral delayed release tablet), 40 mg= 1 tab, PO, Daily, 3 refills primidone(primidone 50 mg oral tablet), 50 mg= 1 tab, PO, bid sildenafil(Viagra 100 mg oral tablet), 100 mg= 1 tab, PO, Daily, PRN, 2 refills tamSULOsin(tamsulosin 0.4 mg oral capsule), 0.8 mg= 2 cap, PO, Daily, 3 refills triamcinolone nasal(triamcinolone 55 mcg/inh nasal spray), 2 spray, each nostril, Daily, 1 refills Allergies Allergy Not found in SearchEpistaxis NSAIDS (nonsteroidal anti-inflammatory agents)GI distress PollenSNEEZING Social History Smoking Status Never smoked cigarettes Employment/School Status:Employed Description:[employer] Home/Environment Lives with:Spouse Family History Breast cancer: Mother. CAD (coronary artery disease): Unknown. Hyperlipidemia..: Mother. Lumbar disc disease: Father. Health Status Family Member(s) Immunizations Vaccine Date Status influenza virus vaccine, inactivated 05/17/2023 Given influenza virus vaccine, inactivated 06/27/2021 Given zoster vaccine, inactivated 09/09/2020 Given influenza virus vaccine, inactivated 04/30/2020 Given zoster vaccine, inactivated 03/25/2020 Given Comments : [id number] 04/08/2022 influenza virus vaccine, inactivated 06/19/2019 Given influenza virus vaccine, inactivated 06/11/2018 Given influenza virus vaccine, inactivated 04/24/2014 Recorded influenza virus vaccine, inactivated 05/03/2013 Recorded influenza virus vaccine, inactivated 04/20/2012 Recorded influenza virus vaccine, inactivated 05/30/2011 Recorded tetanus/diphtheria/pertuss, acel (Tdap) 08/16/2009 Recorded influenza virus vaccine, inactivated 04/29/2009 Recorded influenza virus vaccine, inactivated 05/30/2008 Recorded influenza virus vaccine, inactivated 06/11/2007 Recorded tetanus toxoids-diphtheria, Td (Adult) 04/29/2001 Recorded tetanus toxoids-diphtheria, Td (Adult) 05/30/1999 Recorded Recommendations Health Maintenance Pending(in the next year) Due Adult COVID-19 Vaccination due08/15/23Unknown Frequency Adult Social Determinants of Health Screening due08/15/23Unknown Frequency Adult Tdap/Td Vaccine due08/15/23Unknown Frequency Hepatitis C Screening due08/15/23One-time only Pneumococcal Vaccine Adults and Adolescents with Chronic Illness due08/15/23One-time only Due In Future Adult Influenza Vaccine not due until01/27/24and every 1year Satisfied(in the past 1 year) Satisfied Adult Influenza Vaccine on05/17/23.Satisfied by JERAMY Abbasi Kayla Body Mass Index on08/15/23.Satisfied by NOAH Liriano Chelsalyn Electronic Signature on File CC: Jett Kent MD, DDS, FACP [address] [place] [id number] Electronically Reviewed/Signed by: Jodie Mcclure PA-C Author Signature Dt/Tm:08/15/2023 01:31 PM Department of Otolaryngology [facility] Patient Care team information Care Team Personnel Name: MD Yoli, Jett Dougherty Position: Physician - Internal Med Member Role: Lifetime Relationship Address: Address: [address] [place] [address] [place] Care Team Related Persons Name: ROSALVA CAMPBELL Address: home No Address Provided
--- OUTSIDE RECORDS SUMMARY | 2023-12-19 19:09 | External Medical Summary | Continuity of Care Document ---
Author Name Unknown Organization [facility] [address] [place] [phone] Care Team Providers Care Dye Colorist Dyer Name Role Phone Jett Kent Primary Care Physician [phone] [id number] Date(s): 11/20/23 - 11/20/23 [facility] [address] [place] [facility] [address] [place] [id number] Encounter Diagnosis Body mass index [BMI] 29.0-29.9, adult(Discharge Diagnosis) - 11/20/23 Need for vaccine for Td (tetanus-diphtheria)(Discharge Diagnosis) - 11/20/23 Adult general medical exam(Discharge Diagnosis) - 11/20/23 BPH with obstruction/lower urinary tract symptoms(Discharge Diagnosis) - 11/20/23 Discharge Disposition: Home or Self Care Attending Physician: MD Kent Edward R Referring Physician: MD Kent Edward R Allergies, Adverse Reactions, Alerts Substance Reaction Severity Status NSAIDS (nonsteroidal anti-inflammatory agents) GI dist ress Active Allergy Not found in Search 1 Epistaxis Active Pollen SNEEZING Active 1Nasal Steroids Immunizations Given and Recorded Vaccine Date Status Refusal Reason tetanus toxoids-diphtheria, Td (Adult) 11/20/23 Gi emiliana tetanus toxoids-diphtheria, Td (Adult) 04/29/01 Re corded tetanus toxoids-diphtheria, Td (Adult) 05/30/99 Re corded influenza virus vaccine, inactivated 05/17/23 Give n influenza virus vaccine, inactivated 06/27/21 Give n influenza virus vaccine, inactivated 04/30/20 Give n influenza virus vaccine, inactivated 06/19/19 Give n influenza virus vaccine, inactivated 11/13/18 Give n influenza virus vaccine, inactivated 04/24/14 [...] Given tetanus/diphtheria/pertuss, acel (Tdap) 08/16/09 R ecorded 1Result Comment: [id number] 04/08/2022 Medications atorvastatin 20 mg oral tablet Start: 09/20/23 13:49:00 EST, 1 tab, PO, Daily, Disp# 90 tab, Refills: 3, Pharmacy: [facility] Start Date: 09/20/23 Status: Ordered famotidine 20 mg oral tablet Start: 06/19/19 9:49:00 EST, 1 tab, PO, qhs, Disp# 90 tab, Refills: 3 Start Date: 06/19/19 Stop Date: 09/17/19 Status: Ordered finasteride 5 mg oral tablet Start: 09/20/23 13:49:00 EST, 1 tab, PO, Daily, Disp# 90 tab, Refills: 3, Pharmacy: [facility] Start Date: 09/20/23 Status: Ordered pantoprazole 40 mg oral delayed release tablet Start: 09/20/23 15:12:00 EST, 1 tab, PO, Daily, Disp# 90 tab, X 90 day, Refills: 4, 30 minutes prior to the same meal each day., Stop: 12/13/24 15:12:00 EDT, Pharmacy: [facility] Start Date: 09/20/23 Stop Date: 12/13/24 Status: Ordered primidone 50 mg oral tablet Start: 06/27/21 12:25:00 EST, 1 tab, PO, tid Start Date: 06/27/21 Status: Ordered ProAir HFA 90 mcg/inh inhalation aerosol Start: 04/11/22 13:56:00 EDT, 2 puff, inhaled, qid, Disp# 3 each, Refills: 3, PRN: as needed for wheezing or shortness of breath., Pharmacy: [facility] Start Date: 04/11/22 Status: Ordered Sutab oral tablet Start: 03/05/23 7:10:00 EDT, See Instructions, Disp# 24 tab, Refills: 0, FOLLOW INSTRUCTIONS PROVIDED BY [facility], Pharmacy: [facility]/pharmacy #[id number] Start Date: 03/05/23 Status: Ordered tamsulosin 0.4 mg oral capsule Start: 04/03/23 8:16:00 EDT, 2 cap, PO, Daily, Disp# 180 cap, Refills: 3, 30 minutes after the samemeal, Pharmacy: [facility] Start Date: 04/03/23 Stop Date: 03/28/24 Status: Ordered triamcinolone 55 mcg/inh nasal spray Start: 06/14/23 13:56:00 EST, 2 spray, each nostril, Daily, Disp# 1 each, Refills: 1, Pharmacy: [facility]/pharmacy #[id number] Start Date: 06/14/23 Stop Date: 08/13/23 Status: Ordered Viagra 100 mg oral tablet Start: 04/11/22 13:40:00 EDT, 1 tab, PO, Daily, Disp# 10 tab, Refills: 2, PRN: as needed for erectile dysfunction Start Date: 04/11/22 Status: Ordered Mental Status 11/20/23 Barriers to Learning one year None evide nt Mandatory Health Literacy Documentation Yes Communication Barrier Present No Health Literacy Communication Barriers N ever Primary Language Kittitian Problem List Condition Confirmation Course Effective Dates [...] Diagnosis Diagnosis Type Effective Dates Health Status Cl inical Service Informant Body mass index [BMI] 29.0-29.9, adult Discharge Diagnosis 11/20/23 Non-Specified Need for vaccine for Td (tetanus-diphthe alycia) Discharge Diagnosis 11/20/23 Non-Specified Adult general medical exam Discharge Diagnosis 4/23/24 BPH with obstruction/lowe r urinary tract symptoms Discharge Diagnosis 11/20/23 Non-Specified Procedures Procedure Date Related Diagnosis Body Site [...] recent to oldest [Reference Range]: 1 Height 177 cm (11/20/23 12:51 PM) Patient Weight 91 kg (11/20/23 12:51 PM) Body Mass Index 29.05 kg/m2 (11/20/23 12:51 PM) Temperature [36.5-37.9 DegC] 36.5 DegC (11/20/23 12:51 PM) Heart Rate 78 bpm (11/20/23 12:51 PM) Respiratory Rate 14 br/min (11/20/23 12:51 PM) Blood Pressure 130/70mmHg (11/20/23 12:51 PM) Cuff Pulse Pressure 60 mmHg (11/20/23 12:51 PM) Social History Social History Type Response Smoking Status Never smoked cigaret todd Sex Male Patient Care team information Care Team Personnel Name: MD Yoli, Jett Dougherty Position: Physician - Internal Med Member Role: Lifetime Relationship Address: Address: [address] [place] [address] [place] Care Team Related Persons Name: ROSALVA CAMPBELL Address: home No Address Provided
[2023-12-19 20:44] LABS: ANTI-Xa, UFH(UnfractionatedHep 0.39 IU/ml (0.3-0.7)
[2023-12-19] MEDS: FAMOTIDINE 20 MG TAB PO SCH (20:51)
[2023-12-20] MEDS: ALBUT/IPRATROP 3MG/0.5MG NEB 3 ML VIAL NEB STA (05:43)
[2023-12-20 08:06] LABS: Basophils # (auto) 0.09 K/uL (0.00-0.20); Basophils % (auto) 1.1 %; Eosinophils # (auto) 0.37 K/uL (0.00-0.50); Eosinophils % (auto) 4.7 %; Hematocrit (blood only) 32.9 % (42.0-52.0); Hemoglobin 10.4 g/dl (14.0-18.0); Immature Granulocytes # (auto) 0.03 K/uL (0.01-0.20); Immature Granulocytes % (auto) 0.4 %; Lymphocytes # (auto) 2.01 K/uL (1.20-3.40); Lymphocytes % (auto) 25.4 %; Mean Corpuscular Hemoglobin 26.5 pg (25.0-34.0); Mean Corpuscular Hgb Conc 31.6 g/dL (32.0-36.0); Mean Corpuscular Volume 83.9 fL (80.0-100.0); Mean Platelet Volume 9.2 fL (9.4-12.4); Monocytes # (auto) 0.68 K/uL (0.11-0.59); Monocytes % (auto) 8.6 %; Neutrophils # (auto) 4.73 K/uL (1.40-6.50); Neutrophils % (auto) 59.8 %; Platelet Count 244 K/uL (130-400); RDW Coefficient of Variation 15.4 % (11.5-14.5); RDW Standard Deviation 47.1 fL (36.4-46.3); Red Blood Count 3.92 M/uL (4.70-6.10); White Blood Count 7.91 K/ul (4.8-10.8)
[2023-12-20 08:27] LABS: BUN Creatinine Ratio 16.9 (10-20); Calcium 8.7 mg/dl (8.6-10.3); Creatinine Clr Calc Pharmacy 56.7 ml/min; Est GFR (African American) 70.8 ml/min; Est GFR (Non-African American) 61.1 ml/min; Potassium 3.9 mmol/L (3.5-5.1)
[2023-12-20 08:39] LABS: ANTI-Xa, UFH(UnfractionatedHep 0.48 IU/ml (0.3-0.7)
[2023-12-20] MEDS: APIXABAN 5 MG TABLET PO SCH (09:34)
--- NOTE | 2023-12-20 13:03 | Discharge Summary ---
Date of Service December 20, 2023 Admission HPI Per Admitting Provider Lalit is a 63-year-old male with PMH of GERD, asthma, chronic rhinitis, incarcerated hernia s/p hernia repair, and essential tremor. He presented for worsening chest pressure and SOB started on Wednesday 12/13. Chest pressure is located across his lower transverse chest/epigastric region bilaterally. No radiation to the back, lower stomach, or shoulder/arm. His symptoms wax and wane intermittently.. He has had no prior experiences like this one.. He does have a history of asthma, and asthma attacks, but this does not feel like previous episodes. Patient has also been taking his albuterol inhaler this week without relief. He took ibuprofen earlier today, further chest pressure as he thought it might be inflammation.. He also reports that he took all his regular morning medications; no recent change in medications. His shortness of breath is both at rest and with exertion; may also be worse when he lays down flat on his back. Standing up and walking sometimes makes the pain better.. No recent change in diet. The chest pressure and breathing is not better or worse after eating. No PMH of DVT/PE. No recent injuries to the chest wall or legs. Patient denies history of bleeding disorders or GI bleeds. He is not currently on anticoagulation. No supplemental oxygen at home. No CPAP at night. No sick contact. Patient denies smoking, tobacco use, and consistent alcohol use; reports that he did have a martini on Friday 12/15. History of incarcerated abdominal hernia around 5 years ago. Patient vitals are stable at time admission; SpO2 96-98% on RA. ED Course: Fentanyl 50 mcg IV Aspirin 324 mg p.o. Pantoprazole 40 mg IV ROS: Patient endorses chest pressure across the lower chest, SOB at rest and with exertion, discomfort with deep breaths (mild pleuritic CP), and fatigue. Patient denies fever, chills, nightsweats, dizziness, lightheadedness, GILBERT, rashes, tick bites, cough, hemoptysis, abdominal pain, N/V/D, changes in urinary/bowel habits, blood in urine/stool, dark tarry stool, or numbness/tingling/swelling/pain in arms or legs. Principal Diagnosis PE Discharge Exam The patient is awake, alert and oriented 3, well developed and well nourished, normocephalic and atraumatic, lying in bed and in no acute distress. HEENT--PERRL, EOMI, mucous membranes and oropharynx mildly dry Neck--supple. No JVD. No bruits. Thyroid normal, trachea midline, no adenopathy. Heart--normal S1 and S2. No murmurs, rubs or gallops. Lungs--clear bilaterally, no respiratory distress, no accessory muscle use. Abdomen--normal bowel sounds and soft. Extremities--no cyanosis or clubbing. No edema. Dermatologic--normal skin turgor, normal color, no abnormal lymph nodes, no rash. Neurologic--cranial nerves II through XII grossly intact. Rheumatologic--normal range of motion. Psychiatric--normal affect. Discharge Data Allergies Allergy/AdvReac Type Severity Reaction Status Date / Time cat dander Allergy Intermediate SNEEZING Verified 12/18/23 20:35 house dust mite Allergy Intermediate Sneezing Verified 12/18/23 20:35 pollen extracts Allergy Intermediate SNEEZING Verified 12/18/23 20:35 Consultations 12/18/23 20:36 ED Decision to Admit Stat Ordered Studies 12/18/23 19:06 CT for pulmonary embolism PE [CT angio chest PE protocol] Stat Hospital Course (1) Pulmonary embolism: Patient presents to the hospital worsening shortness of breath and chest pressure. Found to have unprovoked PE on CT angiogram No personal or family history of blood clots. 2D echo has been done, result pending [facility] Still complaining of some shortness of breath and chest discomfort this morning (2) Hiatal hernia: Unclear if contributing to chest pressure (3) Essential tremor: Continue primidone (4) Anemia: Mild; Hgb 11.8 on arrival No signs of active bleeding on clinical exam (patient denies hemoptysis, melena, or BRB in urinary or stool) Follow AM CBC (5) Asthma: Plan Disposition: Continue to monitor, transition to oral anticoagulation tomorrow Full code Regular Diet VTE PPx: Heparin IV standard dose w/ bolus Total Time Total Time Spent Total Time Spent (In Minutes): 35 Discharge Plan Discharge Items Patient Disposition: Home - Self-Care Reason For Visit: CHEST PRESSURE, SOB Discharge Diagnosis: acute PE Activity: Resume your previous activity Lifting: Gradually increase as tolerated Non-emergency contact: Primary Care Provider Call non-emergency contact if: you have any medication questions Follow-up/Referrals: Jett Kent MD [Primary Care Provider] - 12/31/23 3:10 pm Diet: Regular Addtl Attending Provider Instructions: please make appointment to follow up with your regular PCP Pending Studies at Discharge: No Stand-Alone Forms: My [facility], Smoking Cessation Medications and DC Order Prescriptions: New Eliquis 5 mg (74 tabs) tablets,dose pack 5 mg PO BID Qty: 74 0RF Rx Instructions: please take 10mg twice daily for 7 days, then 5mg twice daily Continued finasteride 5 mg tablet 5 mg PO QAM tamsulosin 0.4 mg capsule 0.8 mg PO DAILY primidone 50 mg tablet 200 mg PO TID 90 Days Qty: 1080 3RF famotidine 20 mg tablet 20 mg PO HS pantoprazole [Protonix] 40 mg Tablet,Delayed Release (Dr/Ec) 40 mg PO QAM albuterol sulfate 90 mcg/actuation Hfa Aerosol Inhaler 1 inh INHALATION QID PRN (Reason: SHORT OF BREATH) atorvastatin 20 mg tablet 20 mg PO DAILY Discharge Orders: Discharge Order (Routine); Ordered 12/20/23 Ordered By: Ольга Graff Admission Data Admit Date/Time: 12/18/23 21:17 Attending Provider: Ольга Graff Admit Provider: David Leblanc Primary Care Provider: Jett Kent Other Providers: Ursula Pereira Other Interventions: Discharge Summary Assessment (RN) Last Done: 12/20/23 11:07 Coding Level of Care Code 64976 INP/OBS DISCH >30 MIN Diagnoses Pulmonary embolism I26.99 Hiatal hernia K44.9 Essential tremor G25.0 Anemia D64.9 Asthma J45.909 Time Spent (min) 35
== END 2023-12-20 12:42 | disposition home or self-care (01) | DRG 176 ==
LOC: SUATTDRO → ED 17:36 → SUATTDRO 21:17 → EDINP 21:17 → 2E 22:25